=== PATIENT | male | born 1935 | race Asian ===

== ENCOUNTER 2016-12-16 10:57 | Inpatient (IN) | payer MEDICARE, MEDICAID ==
[2016-12-16] MEDS ORDERED: Sodium Chloride 0.9% 1,000 ML IV ONE (10:58)
--- NOTE | 2016-12-16 10:58 | ED Physician Chart ---
Chief Complaint/HPI - Patient Information Date Seen:: 12/16/16 Time Seen:: 10:57 Chief Complaint:: coffee-ground emesis History of Present Illness:: 81-year-old male [facility] with acute, worsening , coffee-ground emesis times one week. Has associated cough. History limited as patient has underlying dementia and is averbal History provided by EMS and EMS run sheet Allergies:: Allergies Allergy/AdvReac Type Severity Reaction Status Date / Time MDX No Known Allergies - Nka Allergy Verified 02/09/16 18:29 [No Known Allergies - Nka] Historian:: EMS Review:: Nurse's Note Reviewed, EMS run form Reviewed, Transfer documents Reviewed Review of Systems - Review of Systems Other: Complete system review otherwise unremarkable except as noted in HPI. Past Medical History - Past Medical History Past Medical History: HTN (anoxic encephalopathy), DM Family History: None Social History: Non Smoker, No Alcohol, No Drug Use, Care Facility Surgical History: PEG/GTube Psychiatricy History: None Medication: Reviewed Family Medical History - Family Member Mother History Unknown: Yes Physical Exam - Physical Examination Other:: INITIAL VITAL SIGNS: Reviewed by me GENERAL: Patient is lying on gurney HEAD: Head is normocephalic. No evidence of trauma. No scalp or facial swelling EYES: No scleral icterus bilaterally ENT: Oropharynx is clear of exudate and erythema NECK: Supple. No meningismus. No masses. No evidence of trauma. No cervical spine bony step-offs or crepitus to palpation RESPIRATORY: No tachypnea. T-bar in place. Coarse breath sounds worse on the right than left. CV: Regular rate and rhythm. No murmurs, rubs, or gallops ABDOMEN: Soft, non-distended. G-tube in place. No masses BACK: No ecchymoses. No evidence of trauma EXTREMITIES: Normal to inspection and palpation. No deformity SKIN: Warm and dry. No obvious rash. No jaundice NEUROLOGIC: Face is symmetric. Withdraws to pain in all extremities Labs/Radiology/EKG Results - Lab Results Results: Lab Results 12/16/16 12/16/16 12/16/16 Range/Units 11:40 11:40 11:40 WBC 8.4 (4.8-10.8) Th/cmm RBC 3.54 L (3.80-5.80) Mil/cmm Hgb 10.9 L (12.6-17.4) gm/dL Hct 33.3 L (39.0-49.0) % MCV 94.0 (80-99) fl MCH 30.9 (27.0-31.0) pg MCHC Differential 32.9 (28.0-36.0) pg RDW 12.8 (11.5-20.0) % Plt Count 236 (150-400) Th/cmm MPV 8.4 fl Neutrophils % 79.4 (40.0-80.0) % Lymphocytes % 9.1 L (20.0-50.0) % Monocytes % 7.3 (2.0-10.0) % Eosinophils % 3.1 (0.0-5.0) % Basophils % 1.1 (0.0-2.0) % PT 9.7 (9.5-11.5) SECONDS INR 0.98 (0.5-1.4) PTT (Actin FS) 25.6 L (26.0-38.0) SECONDS Sodium 129 L (136-145) mEq/L Potassium 4.1 (3.5-5.1) mEq/L Chloride 95 L (98-107) mEq/L Carbon Dioxide 29.8 (21.0-31.0) mEq/L Anion Gap 8.3 (7.0-16.0) BUN 65 H (7-25) mg/dL Creatinine 1.5 H (0.7-1.3) mg/dL Est GFR ( Amer) TNP Est GFR (Non-Af Amer) TNP BUN/Creatinine Ratio 43.3 Glucose 164 H (70-105) mg/dL POC Glucose (70 - 105) MG/DL Whole Bld Lactic Acid (0.60-2.00) mmol/L Calcium 10.4 H (8.6-10.3) mg/dL Total Bilirubin 0.3 (0.3-1.0) mg/dL AST 21 (13-39) U/L ALT 18 (7-52) U/L Alkaline Phosphatase 90 (34-104) U/L Creatine Kinase 122 (30-223) U/L Total Protein 8.0 (6.0-8.3) gm/dL Albumin 3.7 L (4.2-5.5) gm/dL Globulin 4.3 gm/dL Albumin/Globulin Ratio 0.9 L (1.0-1.8) Amylase 108 H (29-103) U/L Lipase 21 (11-82) U/L Urine Source Urine Color Urine Clarity (CLEAR) Urine pH Ur Specific [place] (1.005-1.030) Urine Protein (NEGATIVE) mg/dL Urine Glucose (UA) (NEGATIVE) mg/dL Urine Ketones (NEGATIVE) mg/dL Urine Blood (NEGATIVE) Urine Nitrate (NEGATIVE) Urine Bilirubin (NEGATIVE) Urine Urobilinogen (0.2 - 1.0) E.U./dL Ur Leukocyte Esterase (NEGATIVE) Urine RBC (0-5) /hpf Urine WBC (0-5) /hpf Ur Epithelial Cells (FEW) /lpf Urine Bacteria (NONE SEEN) /hpf Stool Occult Blood (NEGATIVE) Theophylline (10.0-20.0) ug/mL Blood Type Antibody Screen 12/16/16 12/16/16 12/16/16 Range/Units 11:40 11:40 11:40 WBC (4.8-10.8) Th/cmm RBC (3.80-5.80) Mil/cmm Hgb (12.6-17.4) gm/dL Hct (39.0-49.0) % MCV (80-99) fl MCH (27.0-31.0) pg MCHC Differential (28.0-36.0) pg RDW (11.5-20.0) % Plt Count (150-400) Th/cmm MPV fl Neutrophils % (40.0-80.0) % Lymphocytes % (20.0-50.0) % Monocytes % (2.0-10.0) % Eosinophils % (0.0-5.0) % Basophils % (0.0-2.0) % PT (9.5-11.5) SECONDS INR (0.5-1.4) PTT (Actin FS) (26.0-38.0) SECONDS Sodium (136-145) mEq/L Potassium (3.5-5.1) mEq/L Chloride (98-107) mEq/L Carbon Dioxide (21.0-31.0) mEq/L Anion Gap (7.0-16.0) BUN (7-25) mg/dL Creatinine (0.7-1.3) mg/dL Est GFR ( Amer) Est GFR (Non-Af Amer) BUN/Creatinine Ratio Glucose (70-105) mg/dL POC Glucose (70 - 105) MG/DL Whole Bld Lactic Acid 1.01 (0.60-2.00) mmol/L Calcium (8.6-10.3) mg/dL Total Bilirubin (0.3-1.0) mg/dL AST (13-39) U/L ALT (7-52) U/L Alkaline Phosphatase (34-104) U/L Creatine Kinase (30-223) U/L Total Protein (6.0-8.3) gm/dL Albumin (4.2-5.5) gm/dL Globulin gm/dL Albumin/Globulin Ratio (1.0-1.8) Amylase (29-103) U/L Lipase (11-82) U/L Urine Source Urine Color Urine Clarity (CLEAR) Urine pH Ur Specific [place] (1.005-1.030) Urine Protein (NEGATIVE) mg/dL Urine Glucose (UA) (NEGATIVE) mg/dL Urine Ketones (NEGATIVE) mg/dL Urine Blood (NEGATIVE) Urine Nitrate (NEGATIVE) Urine Bilirubin (NEGATIVE) Urine Urobilinogen (0.2 - 1.0) E.U./dL Ur Leukocyte Esterase (NEGATIVE) Urine RBC (0-5) /hpf Urine WBC (0-5) /hpf Ur Epithelial Cells (FEW) /lpf Urine Bacteria (NONE SEEN) /hpf Stool Occult Blood (NEGATIVE) Theophylline 4.6 L (10.0-20.0) ug/mL Blood Type O POSITIVE Antibody Screen NEGATIVE 12/16/16 12/16/16 12/16/16 Range/Units 12:25 17:15 17:48 WBC (4.8-10.8) Th/cmm RBC (3.80-5.80) Mil/cmm Hgb (12.6-17.4) gm/dL Hct (39.0-49.0) % MCV (80-99) fl MCH (27.0-31.0) pg MCHC Differential (28.0-36.0) pg RDW (11.5-20.0) % Plt Count (150-400) Th/cmm MPV fl Neutrophils % (40.0-80.0) % Lymphocytes % (20.0-50.0) % Monocytes % (2.0-10.0) % Eosinophils % (0.0-5.0) % Basophils % (0.0-2.0) % PT (9.5-11.5) SECONDS INR (0.5-1.4) PTT (Actin FS) (26.0-38.0) SECONDS Sodium (136-145) mEq/L Potassium (3.5-5.1) mEq/L Chloride (98-107) mEq/L Carbon Dioxide (21.0-31.0) mEq/L Anion Gap (7.0-16.0) BUN (7-25) mg/dL Creatinine (0.7-1.3) mg/dL Est GFR ( Amer) Est GFR (Non-Af Amer) BUN/Creatinine Ratio Glucose (70-105) mg/dL POC Glucose 156 H (70 - 105) MG/DL Whole Bld Lactic Acid (0.60-2.00) mmol/L Calcium (8.6-10.3) mg/dL Total Bilirubin (0.3-1.0) mg/dL AST (13-39) U/L ALT (7-52) U/L Alkaline Phosphatase (34-104) U/L Creatine Kinase (30-223) U/L Total Protein (6.0-8.3) gm/dL Albumin (4.2-5.5) gm/dL Globulin gm/dL Albumin/Globulin Ratio (1.0-1.8) Amylase (29-103) U/L Lipase (11-82) U/L Urine Source [place] Urine Color YELLOW Urine Clarity CLOUDY (CLEAR) Urine pH 6.5 Ur Specific [place] 1.020 (1.005-1.030) Urine Protein 100 H (NEGATIVE) mg/dL Urine Glucose (UA) NEGATIVE (NEGATIVE) mg/dL Urine Ketones NEGATIVE (NEGATIVE) mg/dL Urine Blood MODERATE H (NEGATIVE) Urine Nitrate NEGATIVE (NEGATIVE) Urine Bilirubin SMALL H (NEGATIVE) Urine Urobilinogen 0.2 (0.2 - 1.0) E.U./dL Ur Leukocyte Esterase LARGE H (NEGATIVE) Urine RBC 6-8 (0-5) /hpf Urine WBC 50-100 H (0-5) /hpf Ur Epithelial Cells OCCASIONAL (FEW) /lpf Urine Bacteria MANY (NONE SEEN) /hpf Stool Occult Blood NEGATIVE (NEGATIVE) Theophylline (10.0-20.0) ug/mL Blood Type Antibody Screen 12/16/16 Range/Units 21:09 WBC (4.8-10.8) Th/cmm RBC (3.80-5.80) Mil/cmm Hgb (12.6-17.4) gm/dL Hct (39.0-49.0) % MCV (80-99) fl MCH (27.0-31.0) pg MCHC Differential (28.0-36.0) pg RDW (11.5-20.0) % Plt Count (150-400) Th/cmm MPV fl Neutrophils % (40.0-80.0) % Lymphocytes % (20.0-50.0) % Monocytes % (2.0-10.0) % Eosinophils % (0.0-5.0) % Basophils % (0.0-2.0) % PT (9.5-11.5) SECONDS INR (0.5-1.4) PTT (Actin FS) (26.0-38.0) SECONDS Sodium (136-145) mEq/L Potassium (3.5-5.1) mEq/L Chloride (98-107) mEq/L Carbon Dioxide (21.0-31.0) mEq/L Anion Gap (7.0-16.0) BUN (7-25) mg/dL Creatinine (0.7-1.3) mg/dL Est GFR ( Amer) Est GFR (Non-Af Amer) BUN/Creatinine Ratio Glucose (70-105) mg/dL POC Glucose 150 H (70 - 105) MG/DL Whole Bld Lactic Acid (0.60-2.00) mmol/L Calcium (8.6-10.3) mg/dL Total Bilirubin (0.3-1.0) mg/dL AST (13-39) U/L ALT (7-52) U/L Alkaline Phosphatase (34-104) U/L Creatine Kinase (30-223) U/L Total Protein (6.0-8.3) gm/dL Albumin (4.2-5.5) gm/dL Globulin gm/dL Albumin/Globulin Ratio (1.0-1.8) Amylase (29-103) U/L Lipase (11-82) U/L Urine Source Urine Color Urine Clarity (CLEAR) Urine pH Ur Specific [place] (1.005-1.030) Urine Protein (NEGATIVE) mg/dL Urine Glucose (UA) (NEGATIVE) mg/dL Urine Ketones (NEGATIVE) mg/dL Urine Blood (NEGATIVE) Urine Nitrate (NEGATIVE) Urine Bilirubin (NEGATIVE) Urine Urobilinogen (0.2 - 1.0) E.U./dL Ur Leukocyte Esterase (NEGATIVE) Urine RBC (0-5) /hpf Urine WBC (0-5) /hpf Ur Epithelial Cells (FEW) /lpf Urine Bacteria (NONE SEEN) /hpf Stool Occult Blood (NEGATIVE) Theophylline (10.0-20.0) ug/mL Blood Type Antibody Screen - Radiology Results Results: - EKG Interpretations Comments:: 12-lead EKG Interpretation by Stacy Negron MD: Sinus tachycardia with ventricular rate of 102 beats per minute Normal axis Normal intervals No acute ST or T wave changes. No obvious STEMI Assessment - Assessment General Assessment: Critical Care Time: 30 minutes Treatments/Evaluations: Close monitoring and treatment of unstable vital signs, cardiorespiratory, and neurologic status, while maintaining tight balance of fluid, respiratory, and cardiac interventions. This time includes discussing the case with the patient and the patient's family. This time does not include all procedures stated elsewhere in this record. This time also includes reviewing old records, labs and radiological studies. This time includes examining and re-examining the patient. Additionally, this time also includes arranging care with admitting and consulting physicians. Excludes all billable procedures: Yes This condition life threatening/high prob of deterioration: Yes ED Septic Shock - . Is Septic Shock (SBP<90, OR Lactate>4 mmol\L) present?: No Reassessment (Disposition) - Reassessment Reassessment:: Patient has upper GI bleed. There was critical care on this patient 30 minutes. This excludes all billable procedures. Patient received IV fluids and close monitoring. He also received IV Protonix and IV antibiotics as prophylaxis there was concern that he may have aspirated. Discussed the case with the admitting physician and expressed good understanding of the case. He will admit the patient for further workup and treatment. Reassessment Condition:: Improved - Diagnosis Diagnosis:: Upper GI bleed Anemia Acute UTI with hematuria Hyponatremia Acute kidney injury - Patient Disposition Discharge/Transfer:: Acute Care w/in this hosp Admitted to:: Med/Surg Time:: 12:45 Condition at Disposition:: Stable ED Discharge Plan - Patient Disposition Admit/Discharge/Transfer: Acute Care w/in this hosp Condition at Disposition: Stable
[2016-12-16] MEDS ORDERED: Pantoprazole 80 MG in Sodium Chloride 0.9% 100 ML IV ONE (11:05)
[2016-12-16] MEDS ORDERED: Piperacillin Sodium/Tazobact 3.375 gm Vial IV ONE (11:24)
[2016-12-16 11:58] VITALS: BP 171/85
[2016-12-16 12:00] LABS: % BASOPHILS 1.1 % (0.0-2.0); % EOSINOPHILS 3.1 % (0.0-5.0); % LYMPHOCYTES 9.1 % (20.0-50.0); % MONOCYTES 7.3 % (2.0-10.0); % NEUTROPHILS 79.4 % (40.0-80.0); HEMATOCRIT 33.3 % (39.0-49.0); HEMOGLOBIN 10.9 gm/dL (12.6-17.4); MEAN CORPUSCULAR HEMOGLOBIN 30.9 pg (27.0-31.0); MEAN CORPUSCULAR HGB CONC 32.9 pg (28.0-36.0); MEAN PLATELET VOLUME 8.4 fl; NEUTROPHILE ABSOLUTE 6.6 Th/cmm (1.8-8.0); PLATELET COUNT 236 Th/cmm (150-400); RED BLOOD COUNT 3.54 Mil/cmm (3.80-5.80); RED CELL DISTRIBUTION WIDTH 12.8 % (11.5-20.0); WHITE BLOOD COUNT 8.4 Th/cmm (4.8-10.8)
[2016-12-16 12:31] LABS: ALB/GLOB RATIO 0.9 (1.0-1.8); ALKALINE PHOSPHATASE 90 U/L (34-104); AMYLASE SERUM 108 U/L (29-103); ANION GAP 8.3 (7.0-16.0); BILIRUBIN,TOTAL 0.3 mg/dL (0.3-1.0); BUN - UREA NITROGEN 65 mg/dL (7-25); BUN/CREATININE RATIO 43.3; CALCIUM SERUM 10.4 mg/dL (8.6-10.3); CARBON DIOXIDE 29.8 mEq/L (21.0-31.0); CHLORIDE 95 mEq/L (98-107); CREATININE - SERUM 1.5 mg/dL (0.7-1.3); GLUCOSE 164 mg/dL (70-105); LIPASE 21 U/L (11-82); POTASSIUM SERUM 4.1 mEq/L (3.5-5.1); SGOT 21 U/L (13-39); SGPT/ALT 18 U/L (7-52); SODIUM SERUM 129 mEq/L (136-145)
[2016-12-16 12:37] LABS: INR 0.98 (0.5-1.4); PROTHROMBIN TIME (TEST) 9.7 SECONDS (9.5-11.5)
[2016-12-16 12:46] LABS: URINE BILIRUBIN SMALL (NEGATIVE); URINE BLOOD MODERATE (NEGATIVE); URINE COLOR YELLOW; URINE GLUCOSE (UA) NEGATIVE (NEGATIVE); URINE KETONE NEGATIVE (NEGATIVE); URINE PH 6.5; URINE PROTEIN 100 mg/dL (NEGATIVE); URINE UROBILINOGEN 0.2 E.U./dL (0.2 - 1.0)
[2016-12-16 12:49] LABS: URINE BACTERIA MANY /hpf (NONE SEEN); URINE EPITHELIAL CELLS OCCASIONAL /lpf (FEW); URINE WBC 50-100 /hpf (0-5)
[2016-12-16] MEDS ORDERED: Fleet Enema 135 mL RC PRN (14:57)
[2016-12-16] MEDS ORDERED: Magnesium Hydroxide (MOM) 30 mL UDC GT PRN (14:57)
[2016-12-16] MEDS ORDERED: Polyvinyl Alcohol Ophth Soln 15 mL Bottle EACH EYE PRN (14:57)
[2016-12-16] MEDS ORDERED: Epoetin Alfa 20000 Units/mL Vial SUBQ SCH (15:00)
[2016-12-16] MEDS ORDERED: Metoclopramide 5 mg/mL 2mL Vial IVP PRN (15:02)
[2016-12-16] MEDS ORDERED: Metoclopramide 5 mg/mL 2mL Vial IVP ONE (15:06)
[2016-12-16] MEDS ORDERED: D5-0.9%NS 1,000 ML IV SCH (15:15)
--- NOTE | 2016-12-16 15:16 | Internal Medicine Prog Note ---
Internal Medicine Subjective - Subjective Service Date: 12/16/16 Internal Medicine Objective - Results Result Diagrams: 12/16/16 11:40 12/16/16 11:40 Recent Labs: Laboratory Last Values WBC 8.4 Th/cmm (4.8-10.8) 12/16/16 11:40 RBC 3.54 Mil/cmm (3.80-5.80) L 12/16/16 11:40 Hgb 10.9 gm/dL (12.6-17.4) L 12/16/16 11:40 Hct 33.3 % (39.0-49.0) L 12/16/16 11:40 MCV 94.0 fl (80-99) 12/16/16 11:40 MCH 30.9 pg (27.0-31.0) 12/16/16 11:40 MCHC Differential 32.9 pg (28.0-36.0) 12/16/16 11:40 RDW 12.8 % (11.5-20.0) 12/16/16 11:40 Plt Count 236 Th/cmm (150-400) 12/16/16 11:40 MPV 8.4 fl 12/16/16 11:40 Neutrophils % 79.4 % (40.0-80.0) 12/16/16 11:40 Lymphocytes % 9.1 % (20.0-50.0) L 12/16/16 11:40 Monocytes % 7.3 % (2.0-10.0) 12/16/16 11:40 Eosinophils % 3.1 % (0.0-5.0) 12/16/16 11:40 Basophils % 1.1 % (0.0-2.0) 12/16/16 11:40 PT 9.7 SECONDS (9.5-11.5) 12/16/16 11:40 INR 0.98 (0.5-1.4) 12/16/16 11:40 PTT (Actin FS) 25.6 SECONDS (26.0-38.0) L 12/16/16 11:40 Sodium 129 mEq/L (136-145) L 12/16/16 11:40 Potassium 4.1 mEq/L (3.5-5.1) 12/16/16 11:40 Chloride 95 mEq/L (98-107) L 12/16/16 11:40 Carbon Dioxide 29.8 mEq/L (21.0-31.0) 12/16/16 11:40 Anion Gap 8.3 (7.0-16.0) 12/16/16 11:40 BUN 65 mg/dL (7-25) H 12/16/16 11:40 Creatinine 1.5 mg/dL (0.7-1.3) H 12/16/16 11:40 Est GFR ( Amer) TNP 12/16/16 11:40 Est GFR (Non-Af Amer) TN 12/16/16 11:40 BUN/Creatinine Ratio 43.3 12/16/16 11:40 Glucose 164 mg/dL (70-105) H 12/16/16 11:40 Whole Bld Lactic Acid 1.01 mmol/L (0.60-2.00) 12/16/16 11:40 Calcium 10.4 mg/dL (8.6-10.3) H 12/16/16 11:40 Total Bilirubin 0.3 mg/dL (0.3-1.0) 12/16/16 11:40 AST 21 U/L (13-39) 12/16/16 11:40 ALT 18 U/L (7-52) 12/16/16 11:40 Alkaline Phosphatase 90 U/L (34-104) 12/16/16 11:40 Creatine Kinase 122 U/L (30-223) 12/16/16 11:40 Total Protein 8.0 gm/dL (6.0-8.3) 12/16/16 11:40 Albumin 3.7 gm/dL (4.2-5.5) L 12/16/16 11:40 Globulin 4.3 gm/dL 12/16/16 11:40 Albumin/Globulin Ratio 0.9 (1.0-1.8) L 12/16/16 11:40 Amylase 108 U/L (29-103) H 12/16/16 11:40 Lipase 21 U/L (11-82) 12/16/16 11:40 Urine Source [place] 12/16/16 12:25 Urine Color YELLOW 12/16/16 12:25 Urine Clarity CLOUDY (CLEAR) 12/16/16 12:25 Urine pH 6.5 12/16/16 12:25 Ur Specific [place] 1.020 (1.005-1.030) 12/16/16 12:25 Urine Protein 100 mg/dL (NEGATIVE) H 12/16/16 12:25 Urine Glucose (UA) NEGATIVE mg/dL (NEGATIVE) 12/16/16 12:25 Urine Ketones NEGATIVE mg/dL (NEGATIVE) 12/16/16 12:25 Urine Blood MODERATE (NEGATIVE) H 12/16/16 12:25 Urine Nitrate NEGATIVE (NEGATIVE) 12/16/16 12:25 Urine Bilirubin SMALL (NEGATIVE) H 12/16/16 12:25 Urine Urobilinogen 0.2 E.U./dL (0.2 - 1.0) 12/16/16 12:25 Ur Leukocyte Esterase LARGE (NEGATIVE) H 12/16/16 12:25 Urine RBC 6-8 /hpf (0-5) 12/16/16 12:25 Urine WBC 50-100 /hpf (0-5) H 12/16/16 12:25 Ur Epithelial Cells OCCASIONAL /lpf (FEW) 12/16/16 12:25 Urine Bacteria MANY /hpf (NONE SEEN) 12/16/16 12:25 Theophylline 4.6 ug/mL (10.0-20.0) L 12/16/16 11:40 Blood Type O POSITIVE 12/16/16 11:40 Antibody Screen NEGATIVE 12/16/16 11:40 - Physical Exam Vitals and I&O: Vital Signs Temp 97.6 F 12/16/16 13:36 Pulse 110 12/16/16 13:36 Resp 29 12/16/16 13:36 BP 147/55 12/16/16 13:36 Pulse Ox 100 12/16/16 14:00 Active Medications: Current Medications Acetylcysteine (Mucomyst 10%) 2 ml HHN Q4HR DANNI Stop: 02/14/17 15:59 Albuterol/Ipratropium (Duoneb Neb) 3 ml HHN Q6H DANNI Stop: 02/14/17 14:59 Bisacodyl (Dulcolax 10 Mg Supp) 10 mg RC DAILY PRN PRN Reason: if MOM ineffective Stop: 02/14/17 14:56 Budesonide (Pulmicort) 0.5 mg HHN Q12H DANNI Stop: 02/14/17 14:59 Chlorhexidine Gluconate (Peridex) 15 ml MM BID DANNI Stop: 02/14/17 16:59 Chlorpromazine (Thorazine) 25 mg IM Q8H PRN; Protocol PRN Reason: Hiccups Stop: 02/14/17 14:56 Clonidine HCl (Catapres) 0.1 mg PO Q6H PRN PRN Reason: SBP>160 Stop: 02/14/17 15:14 Epoetin Dennis (Epogen) 10,000 units SUBQ QWEEK 0730 DANNI Stop: 02/16/17 05:59 Dextrose/Sodium Chloride (D5-0.9%Ns) 1,000 mls @ 100 mls/hr IV .Q10H DANNI Stop: 02/14/17 15:14 Piperacillin Sod/Tazobactam (Sod 3.375 gm/ Sodium Chloride) 50 mls @ 100 mls/ hr IV Q8H DANNI Stop: 02/14/17 15:14 Levothyroxine Sodium (Synthroid) 0.05 mg GT DAILY [facility] Stop: 02/15/17 08:59 Magnesium Hydroxide (Milk Of Magnesia) 30 ml GT HS PRN PRN Reason: Constipation Stop: 02/14/17 14:56 Metoclopramide HCl (Reglan) 10 mg IVP Q8HR DANNI Stop: 02/14/17 20:59 Miscellaneous (Cran/Vitc/Mannose/Fos/Bromeln [Uti-Stat Liquid]) 30 ml GT BID [facility] Stop: 02/14/17 16:59 Miscellaneous (Docusate Sodium) 100 mg GT BID [facility] Stop: 02/14/17 16:59 Miscellaneous (Insulin Human Isophane (Nph) [Humulin N]) 10 unit SUBQ Q12H DANNI Stop: 02/14/17 14:59 Miscellaneous (Lactobacillus Acidophilus/Pe [Acidophilus/Apple Pectin Complex]) 1 cap GT Q12H DANNI Stop: 02/14/17 14:59 Miscellaneous (Multivitamin [Multivitamins]) 1 sgl GT DAILY [facility] Stop: 02/15/17 08:59 Miscellaneous (Polyvinyl Alcohol [Artificial Tears 15 Ml]) 1 drop EACH EYE Q6H PRN PRN Reason: dry eyes Miscellaneous (Theophylline) 200 mg PO BID [facility] Stop: 02/14/17 16:59 Miscellaneous (Acetaminophen [Tylenol]) 650 mg GT Q4H PRN PRN Reason: Fever >101 Stop: 02/14/17 15:12 Scopolamine (Transderm Scop Patch) 1 patch TD Q72H DANNI Stop: 02/14/17 14:59 Sodium Phosphate (Fleet Enema) ml RC Q2D PRN PRN Reason: dulcolax ineffective Stop: 02/14/17 14:56 Sucralfate (Carafate) 1 gm GT QID DANNI Stop: 02/14/17 16:59 - Procedures Procedures: Procedures Procedure Code Date BLOOD TRANSFUSION SERVICE 58191 02/09/16 EGD DIAGNOSTIC BRUSH WASH 08165 02/09/16 INSPECTION OF UPPER INTESTINAL TRACT, ENDO [id number] 02/09/16 TRANSFUSE NONAUT RED BLOOD CELLS IN PERIPH VEIN, PERC 51180I8 02/09/16 Internal Medicine Assmt/Plan - Assessment Assessment: upper GI bleed acute uti acute respiratory failure dehydration htn dm-2
--- NOTE | 2016-12-16 15:24 | Internal Medicine Prog Note ---
Internal Medicine Subjective - Subjective Service Date: 12/16/16 ([facility] dictated [id number]) Internal Medicine Objective - Results Result Diagrams: 12/16/16 11:40 12/16/16 11:40 Recent Labs: Laboratory Last Values WBC 8.4 Th/cmm (4.8-10.8) 12/16/16 11:40 RBC 3.54 Mil/cmm (3.80-5.80) L 12/16/16 11:40 Hgb 10.9 gm/dL (12.6-17.4) L 12/16/16 11:40 Hct 33.3 % (39.0-49.0) L 12/16/16 11:40 MCV 94.0 fl (80-99) 12/16/16 11:40 MCH 30.9 pg (27.0-31.0) 12/16/16 11:40 MCHC Differential 32.9 pg (28.0-36.0) 12/16/16 11:40 RDW 12.8 % (11.5-20.0) 12/16/16 11:40 Plt Count 236 Th/cmm (150-400) 12/16/16 11:40 MPV 8.4 fl 12/16/16 11:40 Neutrophils % 79.4 % (40.0-80.0) 12/16/16 11:40 Lymphocytes % 9.1 % (20.0-50.0) L 12/16/16 11:40 Monocytes % 7.3 % (2.0-10.0) 12/16/16 11:40 Eosinophils % 3.1 % (0.0-5.0) 12/16/16 11:40 Basophils % 1.1 % (0.0-2.0) 12/16/16 11:40 PT 9.7 SECONDS (9.5-11.5) 12/16/16 11:40 INR 0.98 (0.5-1.4) 12/16/16 11:40 PTT (Actin FS) 25.6 SECONDS (26.0-38.0) L 12/16/16 11:40 Sodium 129 mEq/L (136-145) L 12/16/16 11:40 Potassium 4.1 mEq/L (3.5-5.1) 12/16/16 11:40 Chloride 95 mEq/L (98-107) L 12/16/16 11:40 Carbon Dioxide 29.8 mEq/L (21.0-31.0) 12/16/16 11:40 Anion Gap 8.3 (7.0-16.0) 12/16/16 11:40 BUN 65 mg/dL (7-25) H 12/16/16 11:40 Creatinine 1.5 mg/dL (0.7-1.3) H 12/16/16 11:40 Est GFR ( Amer) TNP 12/16/16 11:40 Est GFR (Non-Af Amer) TNP 12/16/16 11:40 BUN/Creatinine Ratio 43.3 12/16/16 11:40 Glucose 164 mg/dL (70-105) H 12/16/16 11:40 Whole Bld Lactic Acid 1.01 mmol/L (0.60-2.00) 12/16/16 11:40 Calcium 10.4 mg/dL (8.6-10.3) H 12/16/16 11:40 Total Bilirubin 0.3 mg/dL (0.3-1.0) 12/16/16 11:40 AST 21 U/L (13-39) 12/16/16 11:40 ALT 18 U/L (7-52) 12/16/16 11:40 Alkaline Phosphatase 90 U/L (34-104) 12/16/16 11:40 Creatine Kinase 122 U/L (30-223) 12/16/16 11:40 Total Protein 8.0 gm/dL (6.0-8.3) 12/16/16 11:40 Albumin 3.7 gm/dL (4.2-5.5) L 12/16/16 11:40 Globulin 4.3 gm/dL 12/16/16 11:40 Albumin/Globulin Ratio 0.9 (1.0-1.8) L 12/16/16 11:40 Amylase 108 U/L (29-103) H 12/16/16 11:40 Lipase 21 U/L (11-82) 12/16/16 11:40 Urine Source [place] 12/16/16 12:25 Urine Color YELLOW 12/16/16 12:25 Urine Clarity CLOUDY (CLEAR) 12/16/16 12:25 Urine pH 6.5 12/16/16 12:25 Ur Specific [place] 1.020 (1.005-1.030) 12/16/16 12:25 Urine Protein 100 mg/dL (NEGATIVE) H 12/16/16 12:25 Urine Glucose (UA) NEGATIVE mg/dL (NEGATIVE) 12/16/16 12:25 Urine Ketones NEGATIVE mg/dL (NEGATIVE) 12/16/16 12:25 Urine Blood MODERATE (NEGATIVE) H 12/16/16 12:25 Urine Nitrate NEGATIVE (NEGATIVE) 12/16/16 12:25 Urine Bilirubin SMALL (NEGATIVE) H 12/16/16 12:25 Urine Urobilinogen 0.2 E.U./dL (0.2 - 1.0) 12/16/16 12:25 Ur Leukocyte Esterase LARGE (NEGATIVE) H 12/16/16 12:25 Urine RBC 6-8 /hpf (0-5) 12/16/16 12:25 Urine WBC 50-100 /hpf (0-5) H 12/16/16 12:25 Ur Epithelial Cells OCCASIONAL /lpf (FEW) 12/16/16 12:25 Urine Bacteria MANY /hpf (NONE SEEN) 12/16/16 12:25 Theophylline 4.6 ug/mL (10.0-20.0) L 12/16/16 11:40 Blood Type O POSITIVE 12/16/16 11:40 Antibody Screen NEGATIVE 12/16/16 11:40 - Physical Exam Vitals and I&O: Vital Signs Temp 97.6 F 12/16/16 13:36 Pulse 110 12/16/16 13:36 Resp 29 12/16/16 13:36 BP 147/55 12/16/16 13:36 Pulse Ox 100 12/16/16 14:00 Active Medications: Current Medications Acetylcysteine (Mucomyst 10%) 2 ml HHN Q4HR [facility] Stop: 02/14/17 15:59 Albuterol/Ipratropium (Duoneb Neb) 3 ml HHN Q6H [facility]AN[facility] Stop: 02/14/17 14:59 Bisacodyl (Dulcolax 10 Mg Supp) 10 mg RC DAILY PRN PRN Reason: if MOM ineffective Stop: 02/14/17 14:56 Budesonide (Pulmicort) 0.5 mg HHN Q12H [facility] Stop: 02/14/17 14:59 Chlorhexidine Gluconate (Peridex) 15 ml MM BID [facility] Stop: 02/14/17 16:59 Chlorpromazine (Thorazine) 25 mg IM Q8H PRN; Protocol PRN Reason: Hiccups Stop: 02/14/17 14:56 Clonidine HCl (Catapres) 0.1 mg PO Q6H PRN PRN Reason: SBP>160 Stop: 02/14/17 15:14 Epoetin Dennis (Epogen) 10,000 units SUBQ QWEEK 0730 [facility] Stop: 02/16/17 05:59 Dextrose/Sodium Chloride (D5-0.9%Ns) 1,000 mls @ 100 mls/hr IV .Q10H [facility] Stop: 02/14/17 15:14 Piperacillin Sod/Tazobactam (Sod 3.375 gm/ Sodium Chloride) 50 mls @ 100 mls/ hr IV Q8H [facility] Stop: 02/14/17 15:14 Levothyroxine Sodium (Synthroid) 0.05 mg GT DAILY [facility] Stop: 02/15/17 08:59 Magnesium Hydroxide (Milk Of Magnesia) 30 ml GT HS PRN PRN Reason: Constipation Stop: 02/14/17 14:56 Metoclopramide HCl (Reglan) 10 mg IVP Q8HR [facility] Stop: 02/14/17 20:59 Miscellaneous (Cran/Vitc/Mannose/Fos/Bromeln [Uti-Stat Liquid]) 30 ml GT BID [facility] Stop: 02/14/17 16:59 Miscellaneous (Docusate Sodium) 100 mg GT BID [facility] Stop: 02/14/17 16:59 Miscellaneous (Insulin Human Isophane (Nph) [Humulin N]) 10 unit SUBQ Q12H [facility] Stop: 02/14/17 14:59 Miscellaneous (Lactobacillus Acidophilus/Pe [Acidophilus/Apple Pectin Complex]) 1 cap GT Q12H [facility] Stop: 02/14/17 14:59 Miscellaneous (Multivitamin [Multivitamins]) 1 sgl GT DAILY [facility] Stop: 02/15/17 08:59 Miscellaneous (Polyvinyl Alcohol [Artificial Tears 15 Ml]) 1 drop EACH EYE Q6H PRN PRN Reason: dry eyes Miscellaneous (Theophylline) 200 mg PO BID [facility] Stop: 02/14/17 16:59 Miscellaneous (Acetaminophen [Tylenol]) 650 mg GT Q4H PRN PRN Reason: Fever >101 Stop: 02/14/17 15:12 Scopolamine (Transderm Scop Patch) 1 patch TD Q72H [facility] Stop: 02/14/17 14:59 Sodium Phosphate (Fleet Enema) ml RC Q2D PRN PRN Reason: dulcolax ineffective Stop: 02/14/17 14:56 Sucralfate (Carafate) 1 gm GT QID [facility] Stop: 02/14/17 16:59 - Procedures Procedures: Procedures Procedure Code Date BLOOD TRANSFUSION SERVICE 61192 02/09/16 EGD DIAGNOSTIC BRUSH WASH 22480 02/09/16 INSPECTION OF UPPER INTESTINAL TRACT, ENDO [id number] 02/09/16 TRANSFUSE NONAUT RED BLOOD CELLS IN PERIPH VEIN, PERC [id number] 02/09/16 Internal Medicine Assmt/Plan - Assessment Assessment: upper GI bleed acute uti acute respiratory failure dehydration htn dm-2
[2016-12-16] MEDS ORDERED: Albuterol/Ipratropium Neb 3 ML AERS HHN ONE (15:49)
[2016-12-16] MEDS: Albuterol/Ipratropium Neb 3 ML AERS HHN SCH ×2 (15:51→19:14)
--- NOTE | 2016-12-16 16:59 | History & Physical ---
CHIEF COMPLAINT: Coffee ground emesis. HISTORY OF PRESENT ILLNESS: This is an 81-year-old [place] male who is a resident of [facility] who was brought here to [facility] for coffee-ground emesis x 1 week. The patient was also noted to have productive thick greenish secretions upon examination. No fevers at the nursing facility. PAST MEDICAL HISTORY: Diabetes, hypertension, CAD, status post bypass graft, anoxic encephalopathy, DJD. MEDICATIONS: Please see medication reconciliation sheet. ALLERGIES: No drug allergies. SOCIAL HISTORY: The patient resides at [facility], requiring 24-hour nursing and RT care. FAMILY HISTORY: Noncontributory. REVIEW OF SYSTEMS: Unable to obtain, patient is nonverbal. PHYSICAL EXAMINATION: GENERAL: This is an elderly female who appears chronically ill. VITAL SIGNS: Temperature 97.6, heart rate 110, blood pressure 147/55, respirations 18, O2 sat 100%. HEENT: Head; normocephalic, atraumatic. NECK: Supple. No mass. LUNGS: Few rhonchi bilaterally upon auscultation. CARDIOVASCULAR: Regular rate and rhythm. No murmurs or gallops. ABDOMEN: Soft, nontender, nondistended. Positive bowel sounds in all 4 quadrants. LABORATORY DATA: WBC 8.4, H and H 10.9 and 33.3. Sodium 129, potassium 4.1, chloride 95, BUN of 65, creatinine 1.5, calcium 10.4, amylase of 108. The patient had a urinalysis done. The patient is positive for UTI. ASSESSMENT: 1. Upper gastrointestinal bleed. 2. Acute urinary tract infection. 3. Acute respiratory failure. 4. Dehydration. 5. Hypertension. 6. Type 2 diabetes. 7. Hyponatremia. PLAN: The patient to be admitted to the ICU Unit. The patient to have a consultation with Dr. Ken and Dr. Norton, Dr. Cruz and also wound resident care technician. The patient to be kept n.p.o. The patient will be kept hydrated on IV fluids of D5 NS at 100. The patient to have a chest x-ray done. Occult blood will be collected. CRP will be checked. The patient will be on empiric IV antibiotics of Zosyn. We will continue to monitor the patient. JOB# [id number]
[2016-12-16] MEDS ORDERED: chlorproMAZINE 25 mg/mL 2mL Amp IM PRN (17:00)
[2016-12-16] MEDS ORDERED: Chlorhexidine Gluconate 0.12% 480mL Bottle MM SCH ×2 (17:00)
[2016-12-16] MEDS ORDERED: Non-Formulary Item 1 EA (Cran/Vitc/Mannose/Fos/Bromeln [Uti-Stat Liquid] 30 ML) GT SCH (17:00)
[2016-12-16] MEDS ORDERED: Scopolamine 1.5 mg/ 72 hr TDM TD SCH (18:00)
[2016-12-16] MEDS: INSULIN ASPART SLIDING SCALE 100 UNITS/ML UNIT SUBQ SCH ×2 (18:10→21:31)
[2016-12-16] MEDS: Pantoprazole 80 MG in Sodium Chloride 0.9% 100 ML IV SCH (18:50)
[2016-12-16] MEDS: Budesonide 0.5 Mg/2 mL Ud HHN SCH (19:15)
--- NOTE | 2016-12-16 21:16 | Admit Criteria Form ---
Admit Criteria Forms - Admit Criteria Diagnosis: GASTROINTESTINAL BLEEDING, UPPER Clinical Indications for Admission to Inpatient Care ( Place 'X' for any and all applicable criteria): Admission is indicated for ANY ONE of the following(1)(2)(3)(4)(5)(6): [ X]I. Active bleeding (eg, fresh voluminous blood in emesis or nasogastric aspirate) [ ]II. Associated conditions requiring hospitalization (eg, perforation, obstruction from ulcer) [ X]III. Inpatient admission required rather than observation care (Also use Gastrointestinal Bleeding, Upper: Observation Care as appropriate) because of ANY ONE of the following: [ ]a) Hemodynamic instability that is severe or persistent [ ]b) Anemia requiring inpatient admission as indicated by ALL of the following: [ ]1) Presence of significant clinical finding indicated by ANY ONE of the following: [ ]A. Tachycardia for age [ ]B. Orthostatic vital sign changes [ ]C. Cognitive impairment [ ]D. Heart failure [ ]E. Chest pain [ ]F. Exertional dyspnea [ ]G. Other findings suggesting inadequate perfusion (eg, peripheral or myocardial ischemia, end organ dysfunction) [ ]2) Initial (eg, emergency department, observation care) treatment with transfusion or volume replacement is judged inappropriate (due to severity of the finding) or has been ineffective [ ]c) Severe pain requiring acute inpatient management [ ]d) High-risk low platelet count [ ]e) IV fluid to replace significant ongoing losses (greater than 3 L/m2 per day) [ ]f) Immediate inpatient surgery [ X]g) Other condition, treatment or monitoring requiring inpatient admission [ ]IV. Severe liver disease (eg, cirrhosis) [ ]V. Significant active comorbid disease [ ]. Anticoagulation therapy [ ]VII. High-risk endoscopic features (arterial bleeding, adherent clot, nonbleeding visible vessel, varices, flat red spots, ulcer size greater than 2 cm, or portal hypertensive gastropathy) [ ]VIII. Previous aortic graft placement or known aortic aneurysm [ ]IX. Coagulopathy [ ]X. Syncope Extended stay beyond goal length of stay may be needed for(1)(2): [ ]a) Emergency surgery [ ]b) Varices [ ]c) Coagulation abnormalities [ ]d) Recurrent, obscure, or persistent bleeding or continued Hemodynamic instability [ ]e) Associated conditions requiring surgery (eg, perforated gastric ulcer, gastric outlet obstruction) [ ]f) Active comorbidities (eg, renal insufficiency, heart failure, pre- existing liver disease) The original [facility] [employer] content created by [facility] [employer] has been revised. The portions of the content which have been revised are identified through the use of italic text or in bold, and [facility] has neither reviewed nor approved the modified material. All other unmodified content is copyright [facility] [employer]. Please see references footnoted in the original [facility] [employer] edition 2016 Admit Criteria Met?: Yes
[2016-12-16] MEDS: Chlorhexidine Gluconate 0.12% 480mL Bottle MM SCH (21:30)
[2016-12-16] MEDS: INSULIN HUMAN ISOPHANE (NPH) 100 UNITS/ML SUBQ SCH (21:33)
[2016-12-16] MEDS: Lactobacillus Rhamnosus 10 Billion CFU Capsule GT SCH (21:34)
[2016-12-16] MEDS: Theophylline 80 mg/15 mL UDC GT SCH (21:35)
[2016-12-16] MEDS: Metoclopramide 5 mg/mL 2mL Vial IVP SCH (21:35)
[2016-12-17] MEDS: Albuterol/Ipratropium Neb 3 ML AERS HHN SCH ×4 (01:05→19:34)
[2016-12-17] MEDS: D5-0.9%NS 1,000 ML IV SCH ×2 (01:54→13:35)
[2016-12-17] MEDS: Pantoprazole 80 MG in Sodium Chloride 0.9% 100 ML IV SCH ×4 (01:59→22:58)
[2016-12-17 05:19] LABS: % BASOPHILS 0.7 % (0.0-2.0); % EOSINOPHILS 4.2 % (0.0-5.0); % LYMPHOCYTES 13.2 % (20.0-50.0); % MONOCYTES 8.1 % (2.0-10.0); % NEUTROPHILS 73.8 % (40.0-80.0); HEMATOCRIT 30.3 % (39.0-49.0); HEMOGLOBIN 10.1 gm/dL (12.6-17.4); MEAN CELL VOLUME 93.2 fl (80-99); MEAN CORPUSCULAR HEMOGLOBIN 31.2 pg (27.0-31.0); MEAN CORPUSCULAR HGB CONC 33.4 pg (28.0-36.0); NEUTROPHILE ABSOLUTE 6.7 Th/cmm (1.8-8.0); PLATELET COUNT 201 Th/cmm (150-400); RED BLOOD COUNT 3.24 Mil/cmm (3.80-5.80); RED CELL DISTRIBUTION WIDTH 12.9 % (11.5-20.0); WHITE BLOOD COUNT 9.1 Th/cmm (4.8-10.8)
[2016-12-17 05:30] LABS: ALB/GLOB RATIO 0.8 (1.0-1.8); ALKALINE PHOSPHATASE 63 U/L (34-104); ANION GAP 9.2 (7.0-16.0); BILIRUBIN,TOTAL 0.5 mg/dL (0.3-1.0); BUN - UREA NITROGEN 53 mg/dL (7-25); BUN/CREATININE RATIO 37.9; CALCIUM SERUM 9.7 mg/dL (8.6-10.3); CARBON DIOXIDE 30.8 mEq/L (21.0-31.0); CHLORIDE 101 mEq/L (98-107); CREATININE - SERUM 1.4 mg/dL (0.7-1.3); GLUCOSE 131 mg/dL (70-105); SGOT 19 U/L (13-39); SGPT/ALT 16 U/L (7-52); SODIUM SERUM 137 mEq/L (136-145)
[2016-12-17] MEDS: Metoclopramide 5 mg/mL 2mL Vial IVP SCH ×3 (05:44→20:50)
[2016-12-17] MEDS: INSULIN ASPART SLIDING SCALE 100 UNITS/ML UNIT SUBQ SCH ×4 (06:52→20:48)
[2016-12-17] MEDS: Budesonide 0.5 Mg/2 mL Ud HHN SCH ×2 (06:58→19:35)
[2016-12-17] MEDS: Lactobacillus Rhamnosus 10 Billion CFU Capsule GT SCH ×2 (08:03→20:49)
[2016-12-17] MEDS: INSULIN HUMAN ISOPHANE (NPH) 100 UNITS/ML SUBQ SCH ×2 (08:03→20:48)
[2016-12-17] MEDS: Levothyroxine 0.05 Mg Tab GT SCH (08:03)
[2016-12-17] MEDS: Multivitamin Tab GT SCH (08:03)
[2016-12-17] MEDS: Theophylline 80 mg/15 mL UDC GT SCH ×2 (08:04→20:49)
[2016-12-17] MEDS: Chlorhexidine Gluconate 0.12% 480mL Bottle MM SCH ×2 (08:20→21:49)
[2016-12-17] MEDS ORDERED: Non-Formulary Item 1 EA (Acetaminophen [Tylenol] 650 MG) GT SCH (09:00)
--- NOTE | 2016-12-17 09:32 | Diagnostic Imaging Report ---
History: Chest pain and dyspnea Comparison: 02/14/2016 Findings: Heart size is enlarged. Aorta is tortuous. Tracheostomy tube is present. There are no infiltrates or effusions. Impression: Compared old study no acute cardiopulmonary pathology.
--- NOTE | 2016-12-17 10:49 | Diagnostic Imaging Report ---
History: Chest pain and shortness of breath Comparison: 12/16/2016 Findings: Heart size is enlarged. Slight prominence of bronchovascular markings in the bases. Impression: Compared to previous exam slight increase in bronchovascular markings in the lung bases which may be due to poor inspiratory effort or mild congestive changes.
--- NOTE | 2016-12-17 11:16 | Diagnostic Imaging Report ---
History: Abdominal distention Findings: Gastrostomy tube is present with its tip overlying the left upper quadrant. There is mild gaseous distention of small and large bowel loops. Impression mild ileus gas pattern.
--- NOTE | 2016-12-17 14:34 | Consultation ---
REFERRING PHYSICIAN: Dr. Andrade. Thank you very much Dr. Andrade for this consultation. HISTORY OF PRESENT ILLNESS: This is an 81-year-old male well known to me with history of encephalopathy and chronic respiratory failure, status post tracheostomy, G-tube feeding, presented with upper and lower GI bleed and tachycardia was admitted for further treatment and management. The patient has a significant amount of secretions, so the tracheostomy was changed to cuffed one. The patient appeared to be breathing better, but continues to have significant amount of secretions and started on Protonix drip and NG suction. PAST MEDICAL HISTORY: As above. SOCIAL HISTORY: History of smoking in the past. PHYSICAL EXAMINATION: GENERAL: Awake no acute distress. VITAL SIGNS: Temperature 98.0, pulse 90, respiration is 26, blood pressure 100/65, saturation 100%. HEENT: Atraumatic, normocephalic. Pupils react to light and accommodation. Ears, nose and throat normal. NECK: Supple. No JVD. CHEST: There are good breath sounds, few rhonchi bilaterally and no wheezing. HEART: Regular rhythm. tachycardia. No murmurs. ABDOMEN: Soft. EXTREMITIES: No edema. LABORATORY DATA: WBC is 8.4, hemoglobin 10.9, hematocrit 33.3, platelets is 236. Sodium is 129, potassium 4.1, BUN is 65, creatinine 1.5. UA showed large leuko esterase and wbc's. No chest x-ray available at this time. IMPRESSION: This is an 81-year-old male with: 1. Gastrointestinal bleed, possibly upper. 2. Dehydration. 3. Chronic respiratory failure. 4. Dysphagia. 5. Encephalopathy. PLAN: 1. IV fluids. 2. Observe hemoglobin, may need to be transfused. 3. Protonix drip. 4. Nebulizer. 5. Follow up chest x-ray and follow the patient with you. Thank you very much for this consultation. JOB# [id number] FILIBERTO
--- NOTE | 2016-12-17 18:03 | Internal Medicine Prog Note ---
Internal Medicine Subjective - Subjective Service Date: 12/17/16 Patient seen and examined:: with staff Patient is:: awake Per staff patient is:: no adverse event Internal Medicine Objective - Results Result Diagrams: 12/17/16 04:28 12/17/16 04:28 Recent Labs: Laboratory Last Values WBC 9.1 Th/cmm (4.8-10.8) 12/17/16 04:28 RBC 3.24 Mil/cmm (3.80-5.80) L 12/17/16 04:28 Hgb 10.1 gm/dL (12.6-17.4) L 12/17/16 04:28 Hct 30.3 % (39.0-49.0) L 12/17/16 04:28 MCV 93.2 fl (80-99) 12/17/16 04:28 MCH 31.2 pg (27.0-31.0) H 12/17/16 04:28 MCHC Differential 33.4 pg (28.0-36.0) 12/17/16 04:28 RDW 12.9 % (11.5-20.0) 12/17/16 04:28 Plt Count 201 Th/cmm (150-400) 12/17/16 04:28 MPV 9.0 fl 12/17/16 04:28 Neutrophils % 73.8 % (40.0-80.0) 12/17/16 04:28 Lymphocytes % 13.2 % (20.0-50.0) L 12/17/16 04:28 Monocytes % 8.1 % (2.0-10.0) 12/17/16 04:28 Eosinophils % 4.2 % (0.0-5.0) 12/17/16 04:28 Basophils % 0.7 % (0.0-2.0) 12/17/16 04:28 PT 9.7 SECONDS (9.5-11.5) 12/16/16 11:40 INR 0.98 (0.5-1.4) 12/16/16 11:40 PTT (Actin FS) 25.6 SECONDS (26.0-38.0) L 12/16/16 11:40 Sodium 137 mEq/L (136-145) 12/17/16 04:28 Potassium 4.0 mEq/L (3.5-5.1) 12/17/16 04:28 Chloride 101 mEq/L (98-107) 12/17/16 04:28 Carbon Dioxide 30.8 mEq/L (21.0-31.0) 12/17/16 04:28 Anion Gap 9.2 (7.0-16.0) 12/17/16 04:28 BUN 53 mg/dL (7-25) H 12/17/16 04:28 Creatinine 1.4 mg/dL (0.7-1.3) H 12/17/16 04:28 Est GFR ( Amer) TNP 12/17/16 04:28 Est GFR (Non-Af Amer) TNP 12/17/16 04:28 BUN/Creatinine Ratio 37.9 12/17/16 04:28 Glucose 131 mg/dL (70-105) H 12/17/16 04:28 POC Glucose 168 MG/DL (70 - 105) H 12/17/16 16:30 Whole Bld Lactic Acid 1.01 mmol/L (0.60-2.00) 12/16/16 11:40 Calcium 9.7 mg/dL (8.6-10.3) 12/17/16 04:28 Total Bilirubin 0.5 mg/dL (0.3-1.0) 12/17/16 04:28 AST 19 U/L (13-39) 12/17/16 04:28 ALT 16 U/L (7-52) 12/17/16 04:28 Alkaline Phosphatase 63 U/L (34-104) 12/17/16 04:28 Creatine Kinase 122 U/L (30-223) 12/16/16 11:40 C-Reactive Protein 4.20 mg/dL (0.0-0.9) H 12/17/16 04:28 Total Protein 7.4 gm/dL (6.0-8.3) 12/17/16 04:28 Albumin 3.3 gm/dL (4.2-5.5) L 12/17/16 04:28 Globulin 4.1 gm/dL 12/17/16 04:28 Albumin/Globulin Ratio 0.8 (1.0-1.8) L 12/17/16 04:28 Amylase 108 U/L (29-103) H 12/16/16 11:40 Lipase 21 U/L (11-82) 12/16/16 11:40 Urine Source [place] 12/16/16 12:25 Urine Color YELLOW 12/16/16 12:25 Urine Clarity CLOUDY (CLEAR) 12/16/16 12:25 Urine pH 6.5 12/16/16 12:25 Ur Specific [place] 1.020 (1.005-1.030) 12/16/16 12:25 Urine Protein 100 mg/dL (NEGATIVE) H 12/16/16 12:25 Urine Glucose (UA) NEGATIVE mg/dL (NEGATIVE) 12/16/16 12:25 Urine Ketones NEGATIVE mg/dL (NEGATIVE) 12/16/16 12:25 Urine Blood MODERATE (NEGATIVE) H 12/16/16 12:25 Urine Nitrate NEGATIVE (NEGATIVE) 12/16/16 12:25 Urine Bilirubin SMALL (NEGATIVE) H 12/16/16 12:25 Urine Urobilinogen 0.2 E.U./dL (0.2 - 1.0) 12/16/16 12:25 Ur Leukocyte Esterase LARGE (NEGATIVE) H 12/16/16 12:25 Urine RBC 6-8 /hpf (0-5) 12/16/16 12:25 Urine WBC 50-100 /hpf (0-5) H 12/16/16 12:25 Ur Epithelial Cells OCCASIONAL /lpf (FEW) 12/16/16 12:25 Urine Bacteria MANY /hpf (NONE SEEN) 12/16/16 12:25 Gastric Occult Blood POSITIVE 12/16/16 11:30 Stool Occult Blood NEGATIVE (NEGATIVE) 12/17/16 06:20 Theophylline 4.6 ug/mL (10.0-20.0) L 12/16/16 11:40 Blood Type O POSITIVE 12/16/16 11:40 Antibody Screen NEGATIVE 12/16/16 11:40 - Physical Exam Vitals and I&O: Vital Signs Temp 98.4 F 12/17/16 16:00 Pulse 89 12/17/16 17:00 Resp 22 12/17/16 17:00 BP 137/70 12/17/16 17:00 Pulse Ox 100 12/17/16 17:00 Intake & Output 12/16/16 12/17/16 12/17/16 18:59 06:59 18:59 Intake Total 121.5 1084.667 Output Total 1100 1300 Balance -1100 121.5 -215.333 Weight (lbs) 198 lb Intake: Intake, IV Amount 121.5 1084.667 D5-0.9%Ns 1,000 ml @ 80 934.667 mls/hr IV .[id number] [facility] Rx #:[id number] Pantoprazole 80 mg In 71.5 100 Sodium Chloride 0.9% 100 ml @ 10 mls/hr IV Q24HR [facility] Rx#:[id number] Piperacillin Sodium/ 50 50 Tazobact 3.375 gm In Sodium Chloride 0.9% 50 ml @ 100 mls/hr IV Q8H [facility] Rx#:[id number] Oral 0 Output: Gastric Drainage 300 Urine 800 1300 Other: # Bowel Movements 3 3 Stool Characteristics Liquid Liquid Liquid Brown Brown Brown Black Black Active Medications: Current Medications Acetaminophen (Tylenol 650mg/20.3ml Suspension) 650 mg GT Q4H PRN PRN Reason: Fever >101 Stop: 02/14/17 15:12 Acetylcysteine (Mucomyst 10%) 2 ml HHN Q6HR [facility] Stop: 02/14/17 17:59 Last Admin: 12/17/16 12:54 Dose: Not Given Albuterol/Ipratropium (Duoneb Neb) 3 ml HHN Q6HRT [facility] Stop: 02/14/17 18:59 Last Admin: 12/17/16 12:53 Dose: 3 ml Artificial Tears (Artificial Tears Ophth Soln) 1 drop EACH EYE Q6H PRN PRN Reason: dry eyes Stop: 01/15/17 14:56 Bisacodyl (Dulcolax 10 Mg Supp) 10 mg RC DAILY PRN PRN Reason: if MOM ineffective Stop: 02/14/17 14:56 Budesonide (Pulmicort) 0.5 mg HHN Q12HRT [facility] Stop: 02/14/17 18:59 Last Admin: 12/17/16 06:58 Dose: 0.5 mg Chlorhexidine Gluconate (Peridex) 15 ml MM Q12HR [facility] Stop: 02/14/17 20:59 Last Admin: 12/17/16 08:20 Dose: 15 ml Chlorpromazine (Thorazine) 25 mg IM Q8H PRN; Protocol PRN Reason: Hiccups Stop: 02/14/17 16:59 Clonidine HCl (Catapres) 0.1 mg PO Q6H PRN PRN Reason: SBP>160 Stop: 02/14/17 15:14 Docusate Sodium (Colace) 100 mg PO BID [facility] Stop: 02/14/17 16:59 Last Admin: 12/17/16 16:23 Dose: Not Given Epoetin Dennis (Epogen) 10,000 units SUBQ QWEEK 0730 [facility] Stop: 02/16/17 05:59 Piperacillin Sod/Tazobactam (Sod 3.375 gm/ Sodium Chloride) 50 mls @ 100 mls/ hr IV Q8H [facility] Stop: 02/14/17 22:59 Last Admin: 12/17/16 16:28 Dose: 100 mls/hr Pantoprazole Sodium 80 mg/ (Sodium Chloride) 100 mls @ 10 mls/hr IV Q24HR [facility] Stop: 02/14/17 17:44 Last Admin: 12/17/16 12:29 Dose: 10 mls/hr Dextrose/Sodium Chloride (D5-0.9%Ns) 1,000 mls @ 80 mls/hr IV .[id number] [facility] Stop: 02/14/17 21:38 Last Admin: 12/17/16 13:35 Dose: 80 mls/hr Insulin Aspart (Novolog Insulin Sliding Scale) 0 units SUBQ ACHS DANNI PRN Reason: Protocol Stop: 02/14/17 16:29 Last Admin: 12/17/16 17:05 Dose: Not Given Insulin Human NPH (Novolin N) 10 units SUBQ Q12HR [facility] Stop: 02/14/17 20:59 Last Admin: 12/17/16 08:03 Dose: Not Given Lactobacillus Rhamnosus (Culturelle) 1 each GT Q12HR [facility] Stop: 02/14/17 20:59 Last Admin: 12/17/16 08:03 Dose: Not Given Levothyroxine Sodium (Synthroid) 0.05 mg GT QDAC [facility] Stop: 02/15/17 07:29 Last Admin: 12/17/16 08:03 Dose: Not Given Magnesium Hydroxide (Milk Of Magnesia) 30 ml GT HS PRN PRN Reason: Constipation Stop: 02/14/17 14:56 Metoclopramide HCl (Reglan) 10 mg IVP Q8HR [facility] Stop: 02/14/17 20:59 Last Admin: 12/17/16 13:16 Dose: 10 mg Mineral Oil (Mineral Oil 30 Ml) 30 ml GT QID [facility] Stop: 02/15/17 16:59 Last Admin: 12/17/16 16:28 Dose: 30 ml Multivitamins/Vitamin C (Theragran) 1 tab GT DAILY [facility] Stop: 02/15/17 08:59 Last Admin: 12/17/16 08:03 Dose: Not Given Mupirocin (Bactroban Oint) 1 appl NS BID [facility] Stop: 12/22/16 09:01 Last Admin: 12/17/16 16:28 Dose: 1 appl Scopolamine (Transderm Scop Patch) 1 patch TD Q72H [facility] Stop: 02/14/17 17:59 Sodium Phosphate (Fleet Enema) 135 ml RC Q2D PRN PRN Reason: dulcolax ineffective Stop: 02/14/17 14:56 Sucralfate (Carafate) 1 gm GT QID [facility] Stop: 02/14/17 16:59 Last Admin: 12/17/16 16:28 Dose: 1 gm Theophylline (Prieto-Dur) 200 mg GT Q12HR [facility] Stop: 02/14/17 20:59 Last Admin: 12/17/16 08:04 Dose: Not Given General: weak, congested HEENT: NC/AT, PERRLA Neck: Supple Lungs: ronchi Cardiovascular: RRR, Normal S1, Normal S2, without murmur Abdomen: soft non-tender, non-distended, +GT - Procedures Procedures: Procedures Procedure Code Date BLOOD TRANSFUSION SERVICE 47593 02/09/16 EGD DIAGNOSTIC BRUSH WASH 62523 02/09/16 INSPECTION OF UPPER INTESTINAL TRACT, ENDO [id number] 02/09/16 TRANSFUSE NONAUT RED BLOOD CELLS IN PERIPH VEIN, PERC [id number] 02/09/16 Internal Medicine Assmt/Plan - Assessment Assessment: upper GI bleed acute uti acute respiratory failure dehydration htn dm-2 - Plan Plan: ivabx ivf for hydration npo cardio consult montior for fever
[2016-12-18] MEDS: Albuterol/Ipratropium Neb 3 ML AERS HHN SCH ×4 (00:49→18:38)
--- NOTE | 2016-12-18 02:51 | Consultation ---
ATTENDING: Dr. Hermann Andrade. RN GASTROENTEROLOGY: Dr. Rosalio Cruz. REASON FOR CONSULTATION: Worsening kidney function, electrolyte imbalance and fluid management. HISTORY OF PRESENT ILLNESS: This is an 81-year-old Vietnamese with past medical history of chronic kidney disease, who was brought in because of coffee-ground vomitus. One week prior to admission, the patient was noted to have coffee-ground vomitus. He had some green secretions. A few hours prior to admission, his coffee-ground vomitus has worsened. Thus, he was brought to the Emergency Room. He had no diarrhea, melena, hematochezia nor hematemesis. His hemoglobin/hematocrit were 10.9/33.3. Chest x-ray revealed no acute disease. PAST MEDICAL HISTORY: 1. Chronic kidney disease. 2. Respiratory failure, on T-piece. 3. Anoxic encephalopathy. 4. Type 2 diabetes mellitus. 5. Essential hypertension. 6. Coronary artery disease. 7. Anemia of chronic disease, on Epogen. 8. DJD. 9. Hypothyroidism. PAST SURGICAL HISTORY: Status post CABG. CURRENT MEDICATIONS: He is currently on acetaminophen, acetylcysteine, albuterol/ipratropium, bisacodyl, budesonide, chlorhexidine, docusate sodium, Epogen, insulin isophane, Lactobacillus rhamnosus, levothyroxine, magnesium hydroxide, metoclopramide, mineral oil, multivitamin, ____, pantoprazole, scopolamine, sucralfate, theophylline, Zosyn, Thorazine, clonidine p.r.n. ALLERGIES: No known drug allergies. SOCIAL AND FAMILY HISTORY: I was unable to obtain from the patient because he is on a ventilator. REVIEW OF SYSTEMS: CONSTITUTIONAL: Again, I was unable to decipher directly from the patient; however, as per transfer notes, the patient has a gastrostomy tube feeding, no fever, no chills. HEENT: No mention of headaches, no dizziness. CARDIORESPIRATORY: Currently on a T-piece. No chest pain, palpitations, diaphoresis, cough. No shortness of breath. GASTROINTESTINAL: He had coffee-ground vomitus, but no hematemesis, melena, hematochezia, diarrhea. ENDOCRINE: He has a history of diabetes and hypothyroidism. MUSCULOSKELETAL: Multiple joint arthralgias. GENITOURINARY: History of chronic kidney disease. Urinalysis suggestive of uncomplicated urinary tract infection. HEMATOLOGIC: History of anemia, on Epogen, but this is more likely of chronic kidney disease. NEUROPSYCHIATRIC: No syncopal episode or seizure activity. He has anoxic encephalopathy. PHYSICAL EXAMINATION: GENERAL: The patient is awake, on a T-piece, not in any distress. VITAL SIGNS: His blood pressure is 115/50, pulse 75, afebrile. SKIN: Poor turgor, warm. No rash, no jaundice appreciated. HEENT: Head: Normocephalic, atraumatic. Eyes: Extraocular muscles intact. Pupils equal, round, reactive to light and accommodate. Anicteric sclerae, pale conjunctivae. Nose: Midline nasal septum. Mouth: Dry mucosa with poor dentition. NECK: Supple. No adenopathy, no thyromegaly, no bruits. Trachea palpated in the midline. CHEST AND CARDIOVASCULAR: S1, S2. No rub, murmur, no gallop appreciated. Point of maximal impulse, fifth intercostal space ____ midclavicular line. No abdominal or femoral bruits appreciated. LUNGS: Equal expansion. No use of accessory muscles. No supraclavicular retractions. A few rhonchi, but no rales nor wheezes appreciated. ABDOMEN: Mildly globular, soft. Positive for bowel sounds. No bruits either diastolic or systolic. RECTAL: Lax sphincter tone. GENITOURINARY: Normal-appearing male genitalia with indwelling Burns catheter. MUSCULOSKELETAL: No effusions present in his joints, but unable to assess his range of motion. EXTREMITIES: No evidence of any edema, cyanosis, or clubbing. He has bilateral ____ of both upper extremities. NEUROLOGIC: The patient is awake, but remains nonconversive, possibly a vegetative stage. LABORATORY DATA: Sodium 137, potassium 4, chloride 101, bicarbonate 30, BUN 53, creatinine 1.4, glucose 131, calcium 9.7, CRP 4.2, albumin 3.3. KUB showed mild ileus. White count 9.1, hemoglobin 10.1, hematocrit 30.3, polys 73.8%, platelets 201. IMPRESSION: 1. Acute kidney injury on chronic kidney disease, MDRD GFR 51.8 mL per minute stage 3. The patient's chronic kidney disease is secondary to diabetic nephropathy ____ hypertensive sclerosis. 2. Acute kidney injury is likely initially prerenal in nature. His urinalysis was suggestive of a very concentrated urine. His physical exam revealed dry oral mucosa with poor skin turgor. These are all suggestive of underlying dehydration, which could give rise to a decrease in effective circulating volume. Thus, his prerenal azotemia may progress to acute tubular injury. 3. He also has an ongoing urinary tract infection, which could eventually give rise to acute interstitial nephritis. 4. Coffee-ground vomitus, possibly erosive esophagitis/gastritis/peptic ulcer disease. Doubt the presence of varices. 5. Respiratory failure, on T-piece. 6. Anoxic encephalopathy. 7. Type 2 diabetes mellitus with chronic kidney disease. 8. Essential hypertension with chronic kidney disease. 9. Coronary artery disease, status post coronary artery bypass graft. 10. Anemia of chronic kidney disease, but there is no acute drop in his hemoglobin/hematocrit even with the presence of coffee-ground vomitus. 11. Degenerative joint disease. 12. Hypothyroidism. 13. Moderate malnutrition. 14. Uncomplicated urinary tract infection. PLAN: 1. PPI. 2. Low intermittent suction. 3. IV fluids. 4. Urine C and S. 5. ____ sodium. 6. A 24-hour urine collection. 7. Renal ultrasound. Thank you, Dr. nAdrade, for this consult. I will follow the patient closely with you. JOB# [id number]
[2016-12-18] MEDS: D5-0.9%NS 1,000 ML IV SCH ×2 (03:03→17:02)
--- NOTE | 2016-12-18 05:05 | Consultation ---
The patient is in ICU. This 81-year-old male was seen and examined through the courtesy of Dr. Andrade. The patient was admitted here with history of coffee-ground emesis, GI bleeding. He does have history of coronary artery disease, history of hypertension, history of anemia, chronic kidney disease and anoxic encephalopathy. He has a previous trach and ____T tube, but he is not on the ventilator. He was noticed to have cardiac arrhythmia, PVCs on the 2 episodes of 3 PVCs in a row, nonsustained V-tach. PAST MEDICAL HISTORY: ____ childhood, there is no history of rheumatic fever, no scarlet fever and the information obtained from the chart, there is no history available from the patient. REVIEW OF SYSTEMS: Not available from the patient. PHYSICAL EXAMINATION: VITAL SIGNS: Heart rate was 79, sinus rhythm, occasional PVCs, blood pressure 144/60, respiration rate 20, O2 saturation 100%, afebrile. HEENT: Head normocephalic. Eyes, conjunctivae is pink, there is no icterus in the eyes, pupils reactive to light. There were no increased jugular venous distention, no thyromegaly, no lymphadenopathy. Carotids equal both sides. CHEST: Bilaterally symmetrical, moved well by respiration. Respiratory movements were equal both sides. Trachea is central. There is note____ to percussion, breath sound reveals some few scattered rales. CARDIOVASCULAR: PMI not well localized and no positional thrill, no parasternal heave, S1 normal, S2 physiologic. No S3, no rub. ABDOMEN: Soft, no tenderness, no rigidity, no guarding, no organomegaly. Bowel sounds normal. There is no calf tenderness. Radial pulses diminished. EKG showed sinus rhythm, rare PVCs. Sodium was 137, potassium 4.0, chloride 101, CO2 30.8, BUN 53, creatinine 1.4, glucose 131, calcium 9.7. WBC count was 9.1, hemoglobin 10.1, hematocrit 30.3, platelet count was 201. Chest x-ray reveals an increase in the bronchovesicular markings. IMPRESSION: Cardiac arrhythmia, ventricular arrhythmia, nonsustained V tach ____one episode, coronary artery disease, hypertension, anemia, chronic kidney disease, gastrointestinal bleeding, anoxic encephalopathy. DISCUSSION: This 81-year-old who has ____surgery to continue cardiac monitoring. We will closely watch on electrolytes, BUN, creatinine and magnesium level. We will also get lipid profile. The patient should be on some statins also. The patient is to also get echocardiogram to evaluate left ventricular function and valvular structure. Further recommendation will be made depending on the rest of the tests available and Dr. Charlee Rice will be following the patient now. JOB# [id number]
[2016-12-18 05:19] LABS: % BASOPHILS 1.2 % (0.0-2.0); % EOSINOPHILS 4.5 % (0.0-5.0); % LYMPHOCYTES 18.6 % (20.0-50.0); % MONOCYTES 9.5 % (2.0-10.0); % NEUTROPHILS 66.2 % (40.0-80.0); HEMOGLOBIN 8.8 gm/dL (12.6-17.4); MEAN CELL VOLUME 93.1 fl (80-99); MEAN CORPUSCULAR HEMOGLOBIN 31.1 pg (27.0-31.0); MEAN CORPUSCULAR HGB CONC 33.4 pg (28.0-36.0); MEAN PLATELET VOLUME 8.1 fl; NEUTROPHILE ABSOLUTE 5.3 Th/cmm (1.8-8.0); PLATELET COUNT 212 Th/cmm (150-400); RED BLOOD COUNT 2.84 Mil/cmm (3.80-5.80); WHITE BLOOD COUNT 8.1 Th/cmm (4.8-10.8)
[2016-12-18 05:23] LABS: HEMATOCRIT 26.4 % (39.0-49.0)
[2016-12-18 05:31] LABS: ALB/GLOB RATIO 0.8 (1.0-1.8); ALKALINE PHOSPHATASE 51 U/L (34-104); ANION GAP 4.7 (7.0-16.0); BILIRUBIN,TOTAL 0.4 mg/dL (0.3-1.0); BUN - UREA NITROGEN 36 mg/dL (7-25); BUN/CREATININE RATIO 25.7; CALCIUM SERUM 9.3 mg/dL (8.6-10.3); CARBON DIOXIDE 29.1 mEq/L (21.0-31.0); CHLORIDE 108 mEq/L (98-107); CREATININE - SERUM 1.4 mg/dL (0.7-1.3); GLUCOSE 147 mg/dL (70-105); MAGNESIUM 2.3 mg/dL (1.9-2.7); PHOSPHOROUS 2.3 mg/dL (2.5-5.0); POTASSIUM SERUM 3.8 mEq/L (3.5-5.1); SGOT 15 U/L (13-39); SGPT/ALT 13 U/L (7-52); SODIUM SERUM 138 mEq/L (136-145)
[2016-12-18 05:32] LABS: CHOLESTEROL 101 mg/dL (<200); TRIGLYCERIDES 109 mg/dL (<150)
--- NOTE | 2016-12-18 05:54 | Consultation ---
REASON FOR CONSULTATION: GI bleeding and increased gastric residuals. HISTORY OF PRESENT ILLNESS: This consult was obtained through the courtesy of Dr. Andrade and Dr. Helga Angulo for this 81-year-old with history of anoxic encephalopathy complicating a CABG, history of coronary artery disease, diabetes, hypertension, hypothyroidism and now status post tracheostomy, status post G-tube who was admitted to the hospital for coffee-ground emesis over a few days from the correction. Apparently, the patient has history of anemia. He was here in January of last year and he had an endoscopy that showed gastritis. There was a mention of a colonoscopy, but we do not have any records that it was done. The patient was admitted at this time for the coffee-ground emesis. He had high residuals in the first 500 mL, was drained out of the stomach, then after that another 300 and it was all coffee-ground material. Unfortunately, the patient is not able to provide any history. PAST MEDICAL HISTORY: Diabetes, hypertension, coronary artery disease, hypothyroidism and anoxic encephalopathy. PAST SURGICAL HISTORY: He had CABG. He had tracheostomy and has a G-tube. SOCIAL HISTORY: Not known, but at this time, the patient is in a correction. He is nonsmoker, nonalcoholic and non-IV drug abuser. FAMILY HISTORY: Unobtainable, noncontributory. REVIEW OF SYSTEMS: Unobtainable. ALLERGIES: No known drug allergies. MEDICATIONS: When patient came here, he was started on Tylenol, Mucomyst, DuoNeb, Dulcolax, Pulmicort, Thorazine, Catapres, Colace, Epogen, insulin, Culturelle, Synthroid, Milk Of Magnesia, Reglan, vitamin C, Theragran, Protonix, which I started yesterday as a continuous drip, Carafate and Brent. PHYSICAL EXAMINATION: GENERAL: The patient is awake, but nonverbal and noncommunicating. He is intubated. VITAL SIGNS: Blood pressure is 113/95, heart rate is 88, respiratory rate is 26 and temperature was 98. HEAD AND NECK: Pupils reactive to light. Extraocular muscles could not be tested. Oral cavity could not be tested. Neck showed tracheostomy. CHEST: Showed good air entry. LUNGS: Showed bilateral rhonchi. CARDIOVASCULAR SYSTEM: Regular rate and rhythm. No murmur or gallop. ABDOMEN: Obese and distended. There is a G-tube in place. It has some coffee ground drainage from it; otherwise, abdomen showed good bowel sounds and the abdomen did not seem to be tender. EXTREMITIES: Lower extremities, no edema. CENTRAL NERVOUS SYSTEM: Unable to evaluate; the patient has contracted posture. LABORATORY DATA: Hemoglobin on presentation was 10.9, now was 10.1 and platelets were of 236. PT is normal. Sodium was low as 129, now was 137. BUN and creatinine are 53 and 1.4. Liver enzymes were normal, C-reactive protein was high as 4.2. The patient had a chest x-ray which did not show any acute illnesses. IMPRESSION: This 81-year-old with multiple medical problems, now with coffee-ground aspirate from the stomach and increased gastric residuals. ASSESSMENT AND PLAN: 1. Coffee ground emesis. This is most likely refluxed minor GI bleed, could be small ulcer, could be gastritis, could be a tiny [place]-Sampson tear. H and H is stable. The patient had an endoscopy in January of last year, which showed only gastritis and hiatal hernia. At this time, H and H are stable. There was no reason to expose him to another endoscopy. I would continue with the Protonix. I would watch his H/ H. If there is a significant drop of nikki bleeding, then we will consider repeat endoscopy, if not, then we will resume his feeding in a day or two depending on how high is his residuals. Also last year when he was here, there was a mention of a colonoscopy. I do not see any note of it right now, so we will try to get more records from the medical records for future reference. 2. Increase gastric residual. This could reflex sepsis. The patient has a high CRP level. We will get a KUB rule out ileus. Continue his Reglan and then further recommendations to follow. Other medical problems such as diabetes, hypertension, coronary artery disease and hypothyroidism, etc., as per Dr. Andrade. Thank you, Dr. Andrade for allowing me to participate in the care of this patient. If you have any further questions, please let me know. JOB# [id number] [facility]
[2016-12-18] MEDS ORDERED: Epoetin Alfa 20000 Units/mL Vial SUBQ SCH ×2 (06:00→15:00)
[2016-12-18] MEDS: Metoclopramide 5 mg/mL 2mL Vial IVP SCH ×3 (06:53→21:26)
[2016-12-18] MEDS: INSULIN ASPART SLIDING SCALE 100 UNITS/ML UNIT SUBQ SCH ×4 (06:54→21:29)
[2016-12-18] MEDS: Budesonide 0.5 Mg/2 mL Ud HHN SCH ×2 (07:07→18:39)
[2016-12-18] MEDS: Levothyroxine 0.05 Mg Tab GT SCH (07:30)
[2016-12-18] MEDS: Lactobacillus Rhamnosus 10 Billion CFU Capsule GT SCH ×2 (08:46→21:31)
[2016-12-18] MEDS: Theophylline 80 mg/15 mL UDC GT SCH ×2 (08:47→21:31)
[2016-12-18] MEDS: Multivitamin Tab GT SCH (08:47)
[2016-12-18] MEDS: INSULIN HUMAN ISOPHANE (NPH) 100 UNITS/ML SUBQ SCH ×2 (08:51→21:30)
[2016-12-18] MEDS: Chlorhexidine Gluconate 0.12% 480mL Bottle MM SCH ×2 (08:59→21:29)
--- NOTE | 2016-12-18 11:59 | Diagnostic Imaging Report ---
Renal ultrasound HISTORY: Abnormal renal function test The exam is extremely limited and suboptimal due to patient size, body habitus, and respiratory motion. There is poor delineation of the margins of the right kidney that measures approximately 10.1 x 5.2 x 4.8 cm. No obvious focal lesions or hydronephrosis. The left kidney cannot be clearly visualized. The urinary bladder cannot be evaluated due to lack of distention. IMPRESSION: 1. Extremely limited suboptimal exam due to patient size, body habitus, and respiratory motion. Poor visualization of the right kidney with no obvious focal lesions or hydronephrosis. The left kidney could not be visualized.
--- NOTE | 2016-12-18 12:29 | Internal Medicine Prog Note ---
Internal Medicine Subjective - Subjective Service Date: 12/18/16 Patient seen and examined:: with staff Patient is:: awake Per staff patient is:: no adverse event Internal Medicine Objective - Results Result Diagrams: 12/18/16 04:50 12/18/16 04:50 Recent Labs: Laboratory Last Values WBC 8.1 Th/cmm (4.8-10.8) 12/18/16 04:50 RBC 2.84 Mil/cmm (3.80-5.80) L 12/18/16 04:50 Hgb 8.8 gm/dL (12.6-17.4) L 12/18/16 04:50 Hct 26.4 % (39.0-49.0) L D 12/18/16 04:50 MCV 93.1 fl (80-99) 12/18/16 04:50 MCH 31.1 pg (27.0-31.0) H 12/18/16 04:50 MCHC Differential 33.4 pg (28.0-36.0) 12/18/16 04:50 RDW 13.0 % (11.5-20.0) 12/18/16 04:50 Plt Count 212 Th/cmm (150-400) 12/18/16 04:50 MPV 8.1 fl 12/18/16 04:50 Neutrophils % 66.2 % (40.0-80.0) 12/18/16 04:50 Lymphocytes % 18.6 % (20.0-50.0) L 12/18/16 04:50 Monocytes % 9.5 % (2.0-10.0) 12/18/16 04:50 Eosinophils % 4.5 % (0.0-5.0) 12/18/16 04:50 Basophils % 1.2 % (0.0-2.0) 12/18/16 04:50 Eos Smear Source URINE 12/17/16 21:00 Eos Smear Total Cells NONE SEEN (NONE SEEN) 12/17/16 21:00 PT 9.7 SECONDS (9.5-11.5) 12/16/16 11:40 INR 0.98 (0.5-1.4) 12/16/16 11:40 PTT (Actin FS) 25.6 SECONDS (26.0-38.0) L 12/16/16 11:40 Sodium 138 mEq/L (136-145) 12/18/16 04:50 Potassium 3.8 mEq/L (3.5-5.1) 12/18/16 04:50 Chloride 108 mEq/L (98-107) H 12/18/16 04:50 Carbon Dioxide 29.1 mEq/L (21.0-31.0) 12/18/16 04:50 Anion Gap 4.7 (7.0-16.0) L 12/18/16 04:50 BUN 36 mg/dL (7-25) H 12/18/16 04:50 Creatinine 1.4 mg/dL (0.7-1.3) H 12/18/16 04:50 Est GFR ( Amer) TNP 12/18/16 04:50 Est GFR (Non-Af Amer) TNP 12/18/16 04:50 BUN/Creatinine Ratio 25.7 12/18/16 04:50 Glucose 147 mg/dL (70-105) H 12/18/16 04:50 POC Glucose 152 MG/DL (70 - 105) H 12/18/16 06:42 Whole Bld Lactic Acid 1.01 mmol/L (0.60-2.00) 12/16/16 11:40 Calcium 9.3 mg/dL (8.6-10.3) 12/18/16 04:50 Phosphorus 2.3 mg/dL (2.5-5.0) L 12/18/16 04:50 Magnesium 2.3 mg/dL (1.9-2.7) 12/18/16 04:50 Total Bilirubin 0.4 mg/dL (0.3-1.0) 12/18/16 04:50 AST 15 U/L (13-39) 12/18/16 04:50 ALT 13 U/L (7-52) 12/18/16 04:50 Alkaline Phosphatase 51 U/L (34-104) 12/18/16 04:50 Creatine Kinase 122 U/L (30-223) 12/16/16 11:40 C-Reactive Protein 4.20 mg/dL (0.0-0.9) H 12/17/16 04:28 B-Natriuretic Peptide 163.0 pg/mL (5.0-100.0) H 12/18/16 04:50 Total Protein 7.0 gm/dL (6.0-8.3) 12/18/16 04:50 Albumin 3.2 gm/dL (4.2-5.5) L 12/18/16 04:50 Globulin 3.8 gm/dL 12/18/16 04:50 Albumin/Globulin Ratio 0.8 (1.0-1.8) L 12/18/16 04:50 Triglycerides 109 mg/dL (<150) 12/18/16 04:50 Cholesterol 101 mg/dL (<200) 12/18/16 04:50 LDL Cholesterol Direct 51 mg/dL (75-193) L 12/18/16 04:50 HDL Cholesterol 31 mg/dL (23-92) 12/18/16 04:50 Amylase 108 U/L (29-103) H 12/16/16 11:40 Lipase 21 U/L (11-82) 12/16/16 11:40 Urine Source [place] 12/16/16 12:25 Urine Color YELLOW 12/16/16 12:25 Urine Clarity CLOUDY (CLEAR) 12/16/16 12:25 Urine pH 6.5 12/16/16 12:25 Ur Specific [place] 1.020 (1.005-1.030) 12/16/16 12:25 Urine Protein 100 mg/dL (NEGATIVE) H 12/16/16 12:25 Urine Glucose (UA) NEGATIVE mg/dL (NEGATIVE) 12/16/16 12:25 Urine Ketones NEGATIVE mg/dL (NEGATIVE) 12/16/16 12:25 Urine Blood MODERATE (NEGATIVE) H 12/16/16 12:25 Urine Nitrate NEGATIVE (NEGATIVE) 12/16/16 12:25 Urine Bilirubin SMALL (NEGATIVE) H 12/16/16 12:25 Urine Urobilinogen 0.2 E.U./dL (0.2 - 1.0) 12/16/16 12:25 Ur Leukocyte Esterase LARGE (NEGATIVE) H 12/16/16 12:25 Urine RBC 6-8 /hpf (0-5) 12/16/16 12:25 Urine WBC 50-100 /hpf (0-5) H 12/16/16 12:25 Ur Epithelial Cells OCCASIONAL /lpf (FEW) 12/16/16 12:25 Urine Bacteria MANY /hpf (NONE SEEN) 12/16/16 12:25 Ur Random Sodium 87 mmol/L 12/17/16 21:00 Urine Creatinine 60.0 mg/dl (39.0-259.0) 12/17/16 21:00 Gastric Occult Blood POSITIVE 12/16/16 11:30 Stool Occult Blood NEGATIVE (NEGATIVE) 12/17/16 06:20 Theophylline 4.6 ug/mL (10.0-20.0) L 12/16/16 11:40 Blood Type O POSITIVE 12/16/16 11:40 Antibody Screen NEGATIVE 12/16/16 11:40 - Physical Exam Vitals and I&O: Vital Signs Temp 98 F 12/18/16 08:00 Pulse 85 12/18/16 08:00 Resp 19 12/18/16 08:00 BP 149/65 12/18/16 08:00 Pulse Ox 100 12/18/16 08:00 Intake & Output 12/17/16 12/18/16 12/18/16 18:59 06:59 18:59 Intake Total 9533.134 2188.333 Output Total 1850 600 Balance -655.333 863.333 Weight (lbs) 198 lb Intake: Intake, IV Amount 7915.697 3665.333 D5-0.9%Ns 1,000 ml @ 80 955.574 1592.333 mls/hr IV .[id number] [facility] Rx #:[id number] Pantoprazole 80 mg In 100 100 Sodium Chloride 0.9% 100 ml @ 10 mls/hr IV Q24HR [facility] Rx#:[id number] Piperacillin Sodium/ 100 50 Tazobact 3.375 gm In Sodium Chloride 0.9% 50 ml @ 100 mls/hr IV Q8H [facility] Rx#:[id number] Oral 0 Other 60 100 Output: Urine 1850 600 Other: # Bowel Movements 1 Stool Characteristics Liquid Brown Active Medications: Current Medications Acetaminophen (Tylenol 650mg/20.3ml Suspension) 650 mg GT Q4H PRN PRN Reason: Fever >101 Stop: 02/14/17 15:12 Acetylcysteine (Mucomyst 10%) 2 ml HHN Q6HR [facility] Stop: 02/14/17 17:59 Last Admin: 12/18/16 07:09 Dose: Not Given Albuterol/Ipratropium (Duoneb Neb) 3 ml HHN Q6HRT [facility] Stop: 02/14/17 18:59 Last Admin: 12/18/16 07:07 Dose: 3 ml Artificial Tears (Artificial Tears Ophth Soln) 1 drop EACH EYE Q6H PRN PRN Reason: dry eyes Stop: 01/15/17 14:56 Bisacodyl (Dulcolax 10 Mg Supp) 10 mg RC DAILY PRN PRN Reason: if MOM ineffective Stop: 02/14/17 14:56 Budesonide (Pulmicort) 0.5 mg HHN Q12HRT [facility] Stop: 02/14/17 18:59 Last Admin: 12/18/16 07:07 Dose: 0.5 mg Chlorhexidine Gluconate (Peridex) 15 ml MM Q12HR [facility] Stop: 02/14/17 20:59 Last Admin: 12/18/16 08:59 Dose: 15 ml Chlorpromazine (Thorazine) 25 mg IM Q8H PRN; Protocol PRN Reason: Hiccups Stop: 02/14/17 16:59 Clonidine HCl (Catapres) 0.1 mg PO Q6H PRN PRN Reason: SBP>160 Stop: 02/14/17 15:14 Docusate Sodium (Colace) 100 mg PO BID [facility] Stop: 02/14/17 16:59 Last Admin: 12/18/16 08:46 Dose: 100 mg Epoetin Dennis (Epogen) 10,000 units SUBQ QMON [facility] Stop: 02/16/17 14:59 Piperacillin Sod/Tazobactam (Sod 3.375 gm/ Sodium Chloride) 50 mls @ 100 mls/ hr IV Q8H [facility] Stop: 02/14/17 22:59 Last Admin: 12/18/16 06:53 Dose: 100 mls/hr Pantoprazole Sodium 80 mg/ (Sodium Chloride) 100 mls @ 10 mls/hr IV Q24HR [facility] Stop: 02/14/17 17:44 Last Admin: 12/17/16 22:58 Dose: 10 mls/hr Dextrose/Sodium Chloride (D5-0.9%Ns) 1,000 mls @ 80 mls/hr IV .[id number] [facility] Stop: 02/14/17 21:38 Last Infusion: 12/18/16 05:43 Dose: 80 mls/hr Insulin Aspart (Novolog Insulin Sliding Scale) 0 units SUBQ ACHS [facility] PRN Reason: Protocol Stop: 02/14/17 16:29 Last Admin: 12/18/16 06:54 Dose: 2 units Insulin Human NPH (Novolin N) 10 units SUBQ Q12HR [facility] Stop: 02/14/17 20:59 Last Admin: 12/18/16 08:51 Dose: 10 units Lactobacillus Rhamnosus (Culturelle) 1 each GT Q12HR [facility] Stop: 02/14/17 20:59 Last Admin: 12/18/16 08:46 Dose: 1 each Levothyroxine Sodium (Synthroid) 0.05 mg GT QDAC [facility] Stop: 02/15/17 07:29 Last Admin: 12/18/16 07:30 Dose: 0.05 mg Magnesium Hydroxide (Milk Of Magnesia) 30 ml GT HS PRN PRN Reason: Constipation Stop: 02/14/17 14:56 Metoclopramide HCl (Reglan) 10 mg IVP Q8HR [facility] Stop: 02/14/17 20:59 Last Admin: 12/18/16 06:53 Dose: 10 mg Mineral Oil (Mineral Oil 30 Ml) 30 ml GT QID [facility] Stop: 02/15/17 16:59 Last Admin: 12/18/16 08:47 Dose: 30 ml Multivitamins/Vitamin C (Theragran) 1 tab GT DAILY [facility] Stop: 02/15/17 08:59 Last Admin: 12/18/16 08:47 Dose: 1 tab Mupirocin (Bactroban Oint) 1 appl NS BID [facility] Stop: 12/22/16 09:01 Last Admin: 12/18/16 08:50 Dose: 1 appl Scopolamine (Transderm Scop Patch) 1 patch TD Q72H [facility] Stop: 02/14/17 17:59 Sodium Phosphate (Fleet Enema) 135 ml RC Q2D PRN PRN Reason: dulcolax ineffective Stop: 02/14/17 14:56 Sucralfate (Carafate) 1 gm GT QID [facility] Stop: 02/14/17 16:59 Last Admin: 12/18/16 08:47 Dose: 1 gm Theophylline (Prieto-Dur) 200 mg GT Q12HR [facility] Stop: 02/14/17 20:59 Last Admin: 12/18/16 08:47 Dose: 200 mg General: alert HEENT: NC/AT, PERRLA Neck: Supple Lungs: CTAB Cardiovascular: RRR, Normal S1, Normal S2, without murmur Abdomen: soft non-tender, non-distended Extremities: clear - Procedures Procedures: Procedures Procedure Code Date BLOOD TRANSFUSION SERVICE 22695 02/09/16 EGD DIAGNOSTIC BRUSH WASH 82891 02/09/16 INSPECTION OF UPPER INTESTINAL TRACT, ENDO [id number] 02/09/16 TRANSFUSE NONAUT RED BLOOD CELLS IN PERIPH VEIN, PERC 27629Q0 02/09/16 Internal Medicine Assmt/Plan - Assessment Assessment: upper GI bleed acute uti acute respiratory failure dehydration htn dm-2 - Plan Plan: 24hour urine crea. clearance egd tomorrow ivabx ivf for hydration npo montior for fever
--- NOTE | 2016-12-18 13:32 | General Progress Note ---
Subjective - Review of Systems Service Date: 12/18/16 Subjective: eyes open, on T piece, comfortable, no further N/V Objective - Results Result Diagrams: 12/18/16 04:50 12/18/16 04:50 Recent Labs: Laboratory Last Values WBC 8.1 Th/cmm (4.8-10.8) 12/18/16 04:50 RBC 2.84 Mil/cmm (3.80-5.80) L 12/18/16 04:50 Hgb 8.8 gm/dL (12.6-17.4) L 12/18/16 04:50 Hct 26.4 % (39.0-49.0) L D 12/18/16 04:50 MCV 93.1 fl (80-99) 12/18/16 04:50 MCH 31.1 pg (27.0-31.0) H 12/18/16 04:50 MCHC Differential 33.4 pg (28.0-36.0) 12/18/16 04:50 RDW 13.0 % (11.5-20.0) 12/18/16 04:50 Plt Count 212 Th/cmm (150-400) 12/18/16 04:50 MPV 8.1 fl 12/18/16 04:50 Neutrophils % 66.2 % (40.0-80.0) 12/18/16 04:50 Lymphocytes % 18.6 % (20.0-50.0) L 12/18/16 04:50 Monocytes % 9.5 % (2.0-10.0) 12/18/16 04:50 Eosinophils % 4.5 % (0.0-5.0) 12/18/16 04:50 Basophils % 1.2 % (0.0-2.0) 12/18/16 04:50 Eos Smear Source URINE 12/17/16 21:00 Eos Smear Total Cells NONE SEEN (NONE SEEN) 12/17/16 21:00 PT 9.7 SECONDS (9.5-11.5) 12/16/16 11:40 INR 0.98 (0.5-1.4) 12/16/16 11:40 PTT (Actin FS) 25.6 SECONDS (26.0-38.0) L 12/16/16 11:40 Sodium 138 mEq/L (136-145) 12/18/16 04:50 Potassium 3.8 mEq/L (3.5-5.1) 12/18/16 04:50 Chloride 108 mEq/L (98-107) H 12/18/16 04:50 Carbon Dioxide 29.1 mEq/L (21.0-31.0) 12/18/16 04:50 Anion Gap 4.7 (7.0-16.0) L 12/18/16 04:50 BUN 36 mg/dL (7-25) H 12/18/16 04:50 Creatinine 1.4 mg/dL (0.7-1.3) H 12/18/16 04:50 Est GFR ( Amer) TNP 12/18/16 04:50 Est GFR (Non-Af Amer) TNP 12/18/16 04:50 BUN/Creatinine Ratio 25.7 12/18/16 04:50 Glucose 147 mg/dL (70-105) H 12/18/16 04:50 POC Glucose 152 MG/DL (70 - 105) H 12/18/16 06:42 Whole Bld Lactic Acid 1.01 mmol/L (0.60-2.00) 12/16/16 11:40 Calcium 9.3 mg/dL (8.6-10.3) 12/18/16 04:50 Phosphorus 2.3 mg/dL (2.5-5.0) L 12/18/16 04:50 Magnesium 2.3 mg/dL (1.9-2.7) 12/18/16 04:50 Total Bilirubin 0.4 mg/dL (0.3-1.0) 12/18/16 04:50 AST 15 U/L (13-39) 12/18/16 04:50 ALT 13 U/L (7-52) 12/18/16 04:50 Alkaline Phosphatase 51 U/L (34-104) 12/18/16 04:50 Creatine Kinase 122 U/L (30-223) 12/16/16 11:40 C-Reactive Protein 4.20 mg/dL (0.0-0.9) H 12/17/16 04:28 B-Natriuretic Peptide 163.0 pg/mL (5.0-100.0) H 12/18/16 04:50 Total Protein 7.0 gm/dL (6.0-8.3) 12/18/16 04:50 Albumin 3.2 gm/dL (4.2-5.5) L 12/18/16 04:50 Globulin 3.8 gm/dL 12/18/16 04:50 Albumin/Globulin Ratio 0.8 (1.0-1.8) L 12/18/16 04:50 Triglycerides 109 mg/dL (<150) 12/18/16 04:50 Cholesterol 101 mg/dL (<200) 12/18/16 04:50 LDL Cholesterol Direct 51 mg/dL (75-193) L 12/18/16 04:50 HDL Cholesterol 31 mg/dL (23-92) 12/18/16 04:50 Amylase 108 U/L (29-103) H 12/16/16 11:40 Lipase 21 U/L (11-82) 12/16/16 11:40 Urine Source [place] 12/16/16 12:25 Urine Color YELLOW 12/16/16 12:25 Urine Clarity CLOUDY (CLEAR) 12/16/16 12:25 Urine pH 6.5 12/16/16 12:25 Ur Specific [place] 1.020 (1.005-1.030) 12/16/16 12:25 Urine Protein 100 mg/dL (NEGATIVE) H 12/16/16 12:25 Urine Glucose (UA) NEGATIVE mg/dL (NEGATIVE) 12/16/16 12:25 Urine Ketones NEGATIVE mg/dL (NEGATIVE) 12/16/16 12:25 Urine Blood MODERATE (NEGATIVE) H 12/16/16 12:25 Urine Nitrate NEGATIVE (NEGATIVE) 12/16/16 12:25 Urine Bilirubin SMALL (NEGATIVE) H 12/16/16 12:25 Urine Urobilinogen 0.2 E.U./dL (0.2 - 1.0) 12/16/16 12:25 Ur Leukocyte Esterase LARGE (NEGATIVE) H 12/16/16 12:25 Urine RBC 6-8 /hpf (0-5) 12/16/16 12:25 Urine WBC 50-100 /hpf (0-5) H 12/16/16 12:25 Ur Epithelial Cells OCCASIONAL /lpf (FEW) 12/16/16 12:25 Urine Bacteria MANY /hpf (NONE SEEN) 12/16/16 12:25 Ur Random Sodium 87 mmol/L 12/17/16 21:00 Urine Creatinine 60.0 mg/dl (39.0-259.0) 12/17/16 21:00 Gastric Occult Blood POSITIVE 12/16/16 11:30 Stool Occult Blood NEGATIVE (NEGATIVE) 12/17/16 06:20 Theophylline 4.6 ug/mL (10.0-20.0) L 12/16/16 11:40 Blood Type O POSITIVE 12/16/16 11:40 Antibody Screen NEGATIVE 12/16/16 11:40 - Physical Exam Vitals and I&O: Vital Signs Temp 98.8 F 12/18/16 12:00 Pulse 82 12/18/16 13:05 Resp 18 12/18/16 13:05 BP 138/40 12/18/16 12:00 Pulse Ox 100 12/18/16 13:05 Intake & Output 12/17/16 12/18/16 12/18/16 18:59 06:59 18:59 Intake Total 9159.453 8651.333 Output Total 1850 600 Balance -655.333 863.333 Weight (lbs) 89.811 kg Intake: Intake, IV Amount 1955.958 2522.333 D5-0.9%Ns 1,000 ml @ 80 246.641 8583.333 mls/hr IV .[id number] [facility] Rx #:[id number] Pantoprazole 80 mg In 100 100 Sodium Chloride 0.9% 100 ml @ 10 mls/hr IV Q24HR [facility] Rx#:[id number] Piperacillin Sodium/ 100 50 Tazobact 3.375 gm In Sodium Chloride 0.9% 50 ml @ 100 mls/hr IV Q8H [facility] Rx#:[id number] Oral 0 Other 60 100 Output: Urine 1850 600 Other: # Bowel Movements 1 Stool Characteristics Liquid Brown Active Medications: Current Medications Acetaminophen (Tylenol 650mg/20.3ml Suspension) 650 mg GT Q4H PRN PRN Reason: Fever >101 Stop: 02/14/17 15:12 Acetylcysteine (Mucomyst 10%) 2 ml HHN Q6HR [facility] Stop: 02/14/17 17:59 Last Admin: 12/18/16 13:05 Dose: 2 ml Albuterol/Ipratropium (Duoneb Neb) 3 ml HHN Q6HRT [facility] Stop: 02/14/17 18:59 Last Admin: 12/18/16 13:04 Dose: 3 ml Artificial Tears (Artificial Tears Ophth Soln) 1 drop EACH EYE Q6H PRN PRN Reason: dry eyes Stop: 01/15/17 14:56 Bisacodyl (Dulcolax 10 Mg Supp) 10 mg RC DAILY PRN PRN Reason: if MOM ineffective Stop: 02/14/17 14:56 Budesonide (Pulmicort) 0.5 mg HHN Q12HRT [facility] Stop: 02/14/17 18:59 Last Admin: 12/18/16 07:07 Dose: 0.5 mg Chlorhexidine Gluconate (Peridex) 15 ml MM Q12HR [facility] Stop: 02/14/17 20:59 Last Admin: 12/18/16 08:59 Dose: 15 ml Chlorpromazine (Thorazine) 25 mg IM Q8H PRN; Protocol PRN Reason: Hiccups Stop: 02/14/17 16:59 Clonidine HCl (Catapres) 0.1 mg PO Q6H PRN PRN Reason: SBP>160 Stop: 02/14/17 15:14 Docusate Sodium (Colace) 100 mg PO BID [facility] Stop: 02/14/17 16:59 Last Admin: 12/18/16 08:46 Dose: 100 mg Epoetin Dennis (Epogen) 10,000 units SUBQ QMON [facility] Stop: 02/16/17 14:59 Piperacillin Sod/Tazobactam (Sod 3.375 gm/ Sodium Chloride) 50 mls @ 100 mls/ hr IV Q8H [facility] Stop: 02/14/17 22:59 Last Admin: 12/18/16 06:53 Dose: 100 mls/hr Pantoprazole Sodium 80 mg/ (Sodium Chloride) 100 mls @ 10 mls/hr IV Q24HR [facility] Stop: 02/14/17 17:44 Last Admin: 12/17/16 22:58 Dose: 10 mls/hr Dextrose/Sodium Chloride (D5-0.9%Ns) 1,000 mls @ 80 mls/hr IV .[id number] [facility] Stop: 02/14/17 21:38 Last Infusion: 12/18/16 05:43 Dose: 80 mls/hr Insulin Aspart (Novolog Insulin Sliding Scale) 0 units SUBQ ACHS [facility] PRN Reason: Protocol Stop: 02/14/17 16:29 Last Admin: 12/18/16 06:54 Dose: 2 units Insulin Human NPH (Novolin N) 10 units SUBQ Q12HR [facility] Stop: 02/14/17 20:59 Last Admin: 12/18/16 08:51 Dose: 10 units Lactobacillus Rhamnosus (Culturelle) 1 each GT Q12HR [facility] Stop: 02/14/17 20:59 Last Admin: 12/18/16 08:46 Dose: 1 each Levothyroxine Sodium (Synthroid) 0.05 mg GT QDAC [facility] Stop: 02/15/17 07:29 Last Admin: 12/18/16 07:30 Dose: 0.05 mg Magnesium Hydroxide (Milk Of Magnesia) 30 ml GT HS PRN PRN Reason: Constipation Stop: 02/14/17 14:56 Metoclopramide HCl (Reglan) 10 mg IVP Q8HR [facility] Stop: 02/14/17 20:59 Last Admin: 12/18/16 06:53 Dose: 10 mg Mineral Oil (Mineral Oil 30 Ml) 30 ml GT QID [facility] Stop: 02/15/17 16:59 Last Admin: 12/18/16 08:47 Dose: 30 ml Multivitamins/Vitamin C (Theragran) 1 tab GT DAILY [facility] Stop: 02/15/17 08:59 Last Admin: 12/18/16 08:47 Dose: 1 tab Mupirocin (Bactroban Oint) 1 appl NS BID [facility] Stop: 12/22/16 09:01 Last Admin: 12/18/16 08:50 Dose: 1 appl Scopolamine (Transderm Scop Patch) 1 patch TD Q72H [facility] Stop: 02/14/17 17:59 Sodium Phosphate (Fleet Enema) 135 ml RC Q2D PRN PRN Reason: dulcolax ineffective Stop: 02/14/17 14:56 Sucralfate (Carafate) 1 gm GT QID [facility] Stop: 02/14/17 16:59 Last Admin: 12/18/16 08:47 Dose: 1 gm Theophylline (Prieto-Dur) 200 mg GT Q12HR [facility] Stop: 02/14/17 20:59 Last Admin: 12/18/16 08:47 Dose: 200 mg General: Alert, No acute distress HEENT: Atraumatic, Mucous membr. moist/pink Neck: Supple, +2 carotid pulse wo bruit, Other (T piece) Cardiovascular: Regular rate, Normal S1, Normal S2 Lungs: Other (few rhonchi) Abdomen: Bowel sounds, Soft Extremities: no Edema Neurological: Sensation intact, Other (decerebrate) Skin: no Rash - Procedures Procedures: Procedures Procedure Code Date BLOOD TRANSFUSION SERVICE 72129 02/09/16 EGD DIAGNOSTIC BRUSH WASH 93100 02/09/16 INSPECTION OF UPPER INTESTINAL TRACT, ENDO [id number] 02/09/16 TRANSFUSE NONAUT RED BLOOD CELLS IN PERIPH VEIN, PERC 32619D9 02/09/16 Assessment/Plan - Problem List Patient Problems: All Active Problems VOMITING DARK BROWN EMESIS (Acute) Anemia (Acute) D64.9 Anoxic brain damage, not elsewhere classified (Acute) G93.1 Chronic respiratory failure (Acute) J96.10 Hypo-osmolality and hyponatremia (Acute) E87.1 Tracheostomy status (Acute) Z93.0 - Assessment Assessment: jemima on ckd coffee ground vomitus possible esophagitis/ gastritis/ PUD/ varices resp failure on T piece anoxic enceph type 2 dm HTN CAD s/p CABG anemia of ckd DJD hypothyroid mod malnutrition UCx UTI func quadriplegia - Plan Plan: BUN down to 36, CR. of 1.4 possible baseline FE Na 1.47% suggestive of intrinsic renal ds continue D5NS @ 80 ml/hr hgb/hct down to 8.8/26.4 possible hemodilution or anemia f/u electrolytes/cbc
[2016-12-18] MEDS: Pantoprazole 80 MG in Sodium Chloride 0.9% 100 ML IV SCH (17:07)
--- NOTE | 2016-12-18 17:13 | Cardiology ---
Patient of Dr. Andrade. M-MODE ECHOCARDIOGRAM: Mitral valve, anterior leaflet of mitral valve shows normal excursion, EF velocity. Posterior leaflet of mitral valve shows normal excursion. Left ventricular posterior wall shows increased thickness, normal excursion. Interventricular septum shows increased thickness, normal excursion, hypertrophy of the left ventricle, ejection fraction 59%. Left atrium normal. Aortic root shows normal dimension, normal excursion of aortic leaflets. CONCLUSION: Hypertrophy of the left ventricle, ejection fraction 59%. 2D ECHO: Long axis view showed normal sized left ventricle with hypertrophy of the left ventricle. Left atrium normal. Aortic root shows normal dimension, normal excursion of aortic leaflets. Short axis view mitral valve normal. Short axis view of aortic valve normal. Apical four chamber view showed normal sized left ventricle with hypertrophy of the left ventricle. Left atrium normal. Right ventricular cavity, right atrium normal. No pericardial effusion. CONCLUSION: Hypertrophy of the left ventricle, ejection fraction 59%. Doppler study shows mild mitral regurgitation and aortic regurgitation. Pressure half time for aortic regurgitation is 1356. [facility]# [id number]
[2016-12-18] MEDS ORDERED: Sodium Phosphate 20 MMOLE in Sodium Chloride 0.9% 250 ML IV ONE (17:30)
[2016-12-18 21:56] LABS: TOTAL PROTEIN 24 HR URINE 2164.5 mg/24 hr (0-165)
[2016-12-19] MEDS: Albuterol/Ipratropium Neb 3 ML AERS HHN SCH ×4 (00:57→18:30)
[2016-12-19] MEDS: Pantoprazole 80 MG in Sodium Chloride 0.9% 100 ML IV SCH ×3 (05:07→23:30)
[2016-12-19 05:24] LABS: % BASOPHILS 4.5 % (0.0-2.0); % EOSINOPHILS 4.9 % (0.0-5.0); % LYMPHOCYTES 20.4 % (20.0-50.0); % MONOCYTES 8.6 % (2.0-10.0); % NEUTROPHILS 61.6 % (40.0-80.0); HEMOGLOBIN 10.1 gm/dL (12.6-17.4); MEAN CELL VOLUME 93.8 fl (80-99); MEAN CORPUSCULAR HEMOGLOBIN 30.9 pg (27.0-31.0); MEAN CORPUSCULAR HGB CONC 32.9 pg (28.0-36.0); MEAN PLATELET VOLUME 9.6 fl; RED BLOOD COUNT 3.27 Mil/cmm (3.80-5.80); RED CELL DISTRIBUTION WIDTH 13.3 % (11.5-20.0); WHITE BLOOD COUNT 9.7 Th/cmm (4.8-10.8)
[2016-12-19 05:31] LABS: INR 1.04 (0.5-1.4); PROTHROMBIN TIME (TEST) 10.3 SECONDS (9.5-11.5)
[2016-12-19 05:36] LABS: ANION GAP 10.5 (7.0-16.0); BUN - UREA NITROGEN 24 mg/dL (7-25); BUN/CREATININE RATIO 18.5; CALCIUM SERUM 9.4 mg/dL (8.6-10.3); CARBON DIOXIDE 25.9 mEq/L (21.0-31.0); CHLORIDE 108 mEq/L (98-107); CREATININE - SERUM 1.3 mg/dL (0.7-1.3); GLUCOSE 157 mg/dL (70-105); POTASSIUM SERUM 4.4 mEq/L (3.5-5.1); SODIUM SERUM 140 mEq/L (136-145)
[2016-12-19 05:39] LABS: HEMATOCRIT 30.6 % (39.0-49.0); PLATELET COUNT 155 Th/cmm (150-400)
[2016-12-19] MEDS: Metoclopramide 5 mg/mL 2mL Vial IVP SCH ×3 (06:26→20:16)
[2016-12-19] MEDS: INSULIN ASPART SLIDING SCALE 100 UNITS/ML UNIT SUBQ SCH ×4 (06:44→20:15)
[2016-12-19] MEDS: Levothyroxine 0.05 Mg Tab GT SCH (06:46)
[2016-12-19] MEDS: Budesonide 0.5 Mg/2 mL Ud HHN SCH (07:09)
[2016-12-19] MEDS: Lactobacillus Rhamnosus 10 Billion CFU Capsule GT SCH ×2 (09:00→20:16)
[2016-12-19] MEDS: Multivitamin Tab GT SCH (09:00)
[2016-12-19] MEDS: Theophylline 80 mg/15 mL UDC GT SCH ×2 (09:00→20:16)
[2016-12-19] MEDS: Chlorhexidine Gluconate 0.12% 480mL Bottle MM SCH ×2 (09:00→20:15)
[2016-12-19] MEDS: INSULIN HUMAN ISOPHANE (NPH) 100 UNITS/ML SUBQ SCH ×2 (09:00→20:15)
--- NOTE | 2016-12-19 12:29 | Internal Medicine Prog Note ---
Internal Medicine Subjective - Subjective Service Date: 12/19/16 (urine culture + aerococcus urinae ) Patient seen and examined:: with staff Patient is:: awake Per staff patient is:: no adverse event Internal Medicine Objective - Results Result Diagrams: 12/19/16 04:53 12/19/16 04:53 Recent Labs: Laboratory Last Values WBC 9.7 Th/cmm (4.8-10.8) 12/19/16 04:53 RBC 3.27 Mil/cmm (3.80-5.80) L 12/19/16 04:53 Hgb 10.1 gm/dL (12.6-17.4) L 12/19/16 04:53 Hct 30.6 % (39.0-49.0) L D 12/19/16 04:53 MCV 93.8 fl (80-99) 12/19/16 04:53 MCH 30.9 pg (27.0-31.0) 12/19/16 04:53 MCHC Differential 32.9 pg (28.0-36.0) 12/19/16 04:53 RDW 13.3 % (11.5-20.0) 12/19/16 04:53 Plt Count 155 Th/cmm (150-400) D 12/19/16 04:53 MPV 9.6 fl 12/19/16 04:53 Neutrophils % 61.6 % (40.0-80.0) 12/19/16 04:53 Lymphocytes % 20.4 % (20.0-50.0) 12/19/16 04:53 Monocytes % 8.6 % (2.0-10.0) 12/19/16 04:53 Eosinophils % 4.9 % (0.0-5.0) 12/19/16 04:53 Basophils % 4.5 % (0.0-2.0) H 12/19/16 04:53 Eos Smear Source URINE 12/17/16 21:00 Eos Smear Total Cells NONE SEEN (NONE SEEN) 12/17/16 21:00 PT 10.3 SECONDS (9.5-11.5) 12/19/16 04:53 INR 1.04 (0.5-1.4) 12/19/16 04:53 PTT (Actin FS) 25.6 SECONDS (26.0-38.0) L 12/16/16 11:40 Sodium 140 mEq/L (136-145) 12/19/16 04:53 Potassium 4.4 mEq/L (3.5-5.1) 12/19/16 04:53 Chloride 108 mEq/L (98-107) H 12/19/16 04:53 Carbon Dioxide 25.9 mEq/L (21.0-31.0) 12/19/16 04:53 Anion Gap 10.5 (7.0-16.0) 12/19/16 04:53 BUN 24 mg/dL (7-25) 12/19/16 04:53 Creatinine 1.3 mg/dL (0.7-1.3) 12/19/16 04:53 Est GFR ( Amer) TNP 12/19/16 04:53 Est GFR (Non-Af Amer) TNP 12/19/16 04:53 BUN/Creatinine Ratio 18.5 12/19/16 04:53 Glucose 157 mg/dL (70-105) H 12/19/16 04:53 POC Glucose 166 MG/DL (70 - 105) H 12/19/16 11:33 Whole Bld Lactic Acid 1.01 mmol/L (0.60-2.00) 12/16/16 11:40 Calcium 9.4 mg/dL (8.6-10.3) 12/19/16 04:53 Phosphorus 2.3 mg/dL (2.5-5.0) L 12/18/16 04:50 Magnesium 2.3 mg/dL (1.9-2.7) 12/18/16 04:50 Total Bilirubin 0.4 mg/dL (0.3-1.0) 12/18/16 04:50 AST 15 U/L (13-39) 12/18/16 04:50 ALT 13 U/L (7-52) 12/18/16 04:50 Alkaline Phosphatase 51 U/L (34-104) 12/18/16 04:50 Creatine Kinase 122 U/L (30-223) 12/16/16 11:40 C-Reactive Protein 4.20 mg/dL (0.0-0.9) H 12/17/16 04:28 B-Natriuretic Peptide 163.0 pg/mL (5.0-100.0) H 12/18/16 04:50 Total Protein 7.0 gm/dL (6.0-8.3) 12/18/16 04:50 Albumin 3.2 gm/dL (4.2-5.5) L 12/18/16 04:50 Globulin 3.8 gm/dL 12/18/16 04:50 Albumin/Globulin Ratio 0.8 (1.0-1.8) L 12/18/16 04:50 Triglycerides 109 mg/dL (<150) 12/18/16 04:50 Cholesterol 101 mg/dL (<200) 12/18/16 04:50 LDL Cholesterol Direct 51 mg/dL (75-193) L 12/18/16 04:50 HDL Cholesterol 31 mg/dL (23-92) 12/18/16 04:50 Amylase 108 U/L (29-103) H 12/16/16 11:40 Lipase 21 U/L (11-82) 12/16/16 11:40 Urine Source [place] 12/16/16 12:25 Urine Color YELLOW 12/16/16 12:25 Urine Clarity CLOUDY (CLEAR) 12/16/16 12:25 Urine pH 6.5 12/16/16 12:25 Ur Specific [place] 1.020 (1.005-1.030) 12/16/16 12:25 Urine Protein 100 mg/dL (NEGATIVE) H 12/16/16 12:25 Urine Glucose (UA) NEGATIVE mg/dL (NEGATIVE) 12/16/16 12:25 Urine Ketones NEGATIVE mg/dL (NEGATIVE) 12/16/16 12:25 Urine Blood MODERATE (NEGATIVE) H 12/16/16 12:25 Urine Nitrate NEGATIVE (NEGATIVE) 12/16/16 12:25 Urine Bilirubin SMALL (NEGATIVE) H 12/16/16 12:25 Urine Urobilinogen 0.2 E.U./dL (0.2 - 1.0) 12/16/16 12:25 Ur Leukocyte Esterase LARGE (NEGATIVE) H 12/16/16 12:25 Urine RBC 6-8 /hpf (0-5) 12/16/16 12:25 Urine WBC 50-100 /hpf (0-5) H 12/16/16 12:25 Ur Epithelial Cells OCCASIONAL /lpf (FEW) 12/16/16 12:25 Urine Bacteria MANY /hpf (NONE SEEN) 12/16/16 12:25 U Random Total Protein 117.0 mg/dL 12/18/16 21:00 Ur Random Sodium 87 mmol/L 12/17/16 21:00 Urine Collection Time 24 hours 12/18/16 21:00 Urine Total Volume 1850 ml 12/18/16 21:00 Urine Creatinine 60.0 mg/dl (39.0-259.0) 12/17/16 21:00 U Tot Protein 24h, Calc 2164.5 mg/24 hr (0-165) H 12/18/16 21:00 Gastric Occult Blood POSITIVE 12/16/16 11:30 Stool Occult Blood NEGATIVE (NEGATIVE) 12/17/16 06:20 Theophylline 4.6 ug/mL (10.0-20.0) L 12/16/16 11:40 Blood Type O POSITIVE 12/16/16 11:40 Antibody Screen NEGATIVE 12/16/16 11:40 - Physical Exam Vitals and I&O: Vital Signs Temp 98.8 F 12/19/16 08:00 Pulse 75 12/19/16 12:04 Resp 31 12/19/16 12:04 BP 145/71 12/19/16 08:00 Pulse Ox 100 12/19/16 12:04 Intake & Output 12/18/16 12/19/16 12/19/16 18:59 06:59 18:59 Intake Total 1106.667 180 Output Total 1250 1110 Balance -143.333 -930 Weight (lbs) 180 lb 6.4 oz 206 lb 6.4 oz Intake: Intake, IV Amount 986.667 150 D5-0.9%Ns 1,000 ml @ 80 786.667 mls/hr IV .[id number] [facility] Rx #:[id number] Pantoprazole 80 mg In 100 100 Sodium Chloride 0.9% 100 ml @ 10 mls/hr IV Q24HR [facility] Rx#:[id number] Piperacillin Sodium/ 100 50 Tazobact 3.375 gm In Sodium Chloride 0.9% 50 ml @ 100 mls/hr IV Q8H [facility] Rx#:[id number] Tube Feeding 30 Other 120 Output: Urine 1250 1110 Other: # Bowel Movements 0 Active Medications: Current Medications Acetaminophen (Tylenol 650mg/20.3ml Suspension) 650 mg GT Q4H PRN PRN Reason: Fever >101 Stop: 02/14/17 15:12 Acetylcysteine (Mucomyst 10%) 2 ml HHN Q6HR [facility] Stop: 02/14/17 17:59 Last Admin: 12/19/16 12:04 Dose: 2 ml Albuterol/Ipratropium (Duoneb Neb) 3 ml HHN Q6HRT [facility] Stop: 02/14/17 18:59 Last Admin: 12/19/16 12:04 Dose: 3 ml Artificial Tears (Artificial Tears Ophth Soln) 1 drop EACH EYE Q6H PRN PRN Reason: dry eyes Stop: 01/15/17 14:56 Bisacodyl (Dulcolax 10 Mg Supp) 10 mg RC DAILY PRN PRN Reason: if MOM ineffective Stop: 02/14/17 14:56 Budesonide (Pulmicort) 0.5 mg HHN Q12HRT [facility] Stop: 02/14/17 18:59 Last Admin: 12/19/16 07:09 Dose: 0.5 mg Chlorhexidine Gluconate (Peridex) 15 ml MM Q12HR [facility] Stop: 02/14/17 20:59 Last Admin: 12/19/16 09:00 Dose: 15 ml Chlorpromazine (Thorazine) 25 mg IM Q8H PRN; Protocol PRN Reason: Hiccups Stop: 02/14/17 16:59 Clonidine HCl (Catapres) 0.1 mg PO Q6H PRN PRN Reason: SBP>160 Stop: 02/14/17 15:14 Docusate Sodium (Colace) 100 mg PO BID [facility] Stop: 02/14/17 16:59 Last Admin: 12/19/16 09:00 Dose: Not Given Epoetin Dennis (Epogen) 10,000 units SUBQ QMON [facility] Stop: 02/16/17 14:59 Last Admin: 12/18/16 14:18 Dose: 10,000 units Piperacillin Sod/Tazobactam (Sod 3.375 gm/ Sodium Chloride) 50 mls @ 100 mls/ hr IV Q8H [facility] Stop: 02/14/17 22:59 Last Admin: 12/19/16 06:23 Dose: 100 mls/hr Pantoprazole Sodium 80 mg/ (Sodium Chloride) 100 mls @ 10 mls/hr IV Q24HR [facility] Stop: 02/14/17 17:44 Last Admin: 12/19/16 05:07 Dose: 10 mls/hr Dextrose/Sodium Chloride (D5-0.9%Ns) 1,000 mls @ 80 mls/hr IV .[id number] [facility] Stop: 02/14/17 21:38 Last Admin: 12/18/16 17:02 Dose: 80 mls/hr Insulin Aspart (Novolog Insulin Sliding Scale) 0 units SUBQ ACHS [facility] PRN Reason: Protocol Stop: 02/14/17 16:29 Last Admin: 12/19/16 11:37 Dose: Not Given Insulin Human NPH (Novolin N) 10 units SUBQ Q12HR [facility] Stop: 02/14/17 20:59 Last Admin: 12/19/16 09:00 Dose: Not Given Lactobacillus Rhamnosus (Culturelle) 1 each GT Q12HR [facility] Stop: 02/14/17 20:59 Last Admin: 12/19/16 09:00 Dose: Not Given Levothyroxine Sodium (Synthroid) 0.05 mg GT QDAC [facility] Stop: 02/15/17 07:29 Last Admin: 12/19/16 06:46 Dose: Not Given Magnesium Hydroxide (Milk Of Magnesia) 30 ml GT HS PRN PRN Reason: Constipation Stop: 02/14/17 14:56 Metoclopramide HCl (Reglan) 10 mg IVP Q8HR [facility] Stop: 02/14/17 20:59 Last Admin: 12/19/16 06:26 Dose: 10 mg Mineral Oil (Mineral Oil 30 Ml) 30 ml GT QID [facility] Stop: 02/15/17 16:59 Last Admin: 12/19/16 09:00 Dose: Not Given Multivitamins/Vitamin C (Theragran) 1 tab GT DAILY [facility] Stop: 02/15/17 08:59 Last Admin: 12/19/16 09:00 Dose: Not Given Mupirocin (Bactroban Oint) 1 appl NS BID [facility] Stop: 12/22/16 09:01 Last Admin: 12/19/16 09:00 Dose: 1 appl Scopolamine (Transderm Scop Patch) 1 patch TD Q72H [facility] Stop: 02/14/17 17:59 Sodium Phosphate (Fleet Enema) 135 ml RC Q2D PRN PRN Reason: dulcolax ineffective Stop: 02/14/17 14:56 Sucralfate (Carafate) 1 gm GT QID [facility] Stop: 02/14/17 16:59 Last Admin: 12/19/16 09:00 Dose: Not Given Theophylline (Prieto-Dur) 200 mg GT Q12HR [facility] Stop: 02/14/17 20:59 Last Admin: 12/19/16 09:00 Dose: Not Given General: alert HEENT: NC/AT, PERRLA Neck: Supple Lungs: CTAB Cardiovascular: RRR, Normal S1, Normal S2, without murmur Abdomen: soft non-tender Extremities: clear - Procedures Procedures: Procedures Procedure Code Date BLOOD TRANSFUSION SERVICE 13915 02/09/16 EGD DIAGNOSTIC BRUSH WASH 79822 02/09/16 INSPECTION OF UPPER INTESTINAL TRACT, ENDO [id number] 02/09/16 TRANSFUSE NONAUT RED BLOOD CELLS IN PERIPH VEIN, PERC 97329C6 02/09/16 Internal Medicine Assmt/Plan - Assessment Assessment: upper GI bleed acute uti , aerococcus urinae acute respiratory failure dehydration htn dm-2 - Plan Plan: egd today will add vanco per pharmacy to dose ivabx ivf for hydration npo montior for fever
[2016-12-19] MEDS: Vancomycin HCl 1.5 GM in Sodium Chloride 0.9% 500 ML IV SCH (13:37)
[2016-12-19] MEDS: D5-0.9%NS 1,000 ML IV SCH (14:02)
[2016-12-19] MEDS ORDERED: Lactated Ringer 1,000 ML IV SCH (16:45)
--- NOTE | 2016-12-19 18:11 | General Progress Note ---
Subjective - Review of Systems Service Date: 12/19/16 Subjective: eyes open, on T piece, comfortable, no further N/V Objective - Results Result Diagrams: 12/19/16 04:53 12/19/16 04:53 Recent Labs: Laboratory Last Values WBC 9.7 Th/cmm (4.8-10.8) 12/19/16 04:53 RBC 3.27 Mil/cmm (3.80-5.80) L 12/19/16 04:53 Hgb 10.1 gm/dL (12.6-17.4) L 12/19/16 04:53 Hct 30.6 % (39.0-49.0) L D 12/19/16 04:53 MCV 93.8 fl (80-99) 12/19/16 04:53 MCH 30.9 pg (27.0-31.0) 12/19/16 04:53 MCHC Differential 32.9 pg (28.0-36.0) 12/19/16 04:53 RDW 13.3 % (11.5-20.0) 12/19/16 04:53 Plt Count 155 Th/cmm (150-400) D 12/19/16 04:53 MPV 9.6 fl 12/19/16 04:53 Neutrophils % 61.6 % (40.0-80.0) 12/19/16 04:53 Lymphocytes % 20.4 % (20.0-50.0) 12/19/16 04:53 Monocytes % 8.6 % (2.0-10.0) 12/19/16 04:53 Eosinophils % 4.9 % (0.0-5.0) 12/19/16 04:53 Basophils % 4.5 % (0.0-2.0) H 12/19/16 04:53 Eos Smear Source URINE 12/17/16 21:00 Eos Smear Total Cells NONE SEEN (NONE SEEN) 12/17/16 21:00 PT 10.3 SECONDS (9.5-11.5) 12/19/16 04:53 INR 1.04 (0.5-1.4) 12/19/16 04:53 PTT (Actin FS) 25.6 SECONDS (26.0-38.0) L 12/16/16 11:40 Sodium 140 mEq/L (136-145) 12/19/16 04:53 Potassium 4.4 mEq/L (3.5-5.1) 12/19/16 04:53 Chloride 108 mEq/L (98-107) H 12/19/16 04:53 Carbon Dioxide 25.9 mEq/L (21.0-31.0) 12/19/16 04:53 Anion Gap 10.5 (7.0-16.0) 12/19/16 04:53 BUN 24 mg/dL (7-25) 12/19/16 04:53 Creatinine 1.3 mg/dL (0.7-1.3) 12/19/16 04:53 Est GFR ( Amer) TNP 12/19/16 04:53 Est GFR (Non-Af Amer) TNP 12/19/16 04:53 BUN/Creatinine Ratio 18.5 12/19/16 04:53 Glucose 157 mg/dL (70-105) H 12/19/16 04:53 POC Glucose 141 MG/DL (70 - 105) H 12/19/16 16:57 Whole Bld Lactic Acid 1.01 mmol/L (0.60-2.00) 12/16/16 11:40 Calcium 9.4 mg/dL (8.6-10.3) 12/19/16 04:53 Phosphorus 2.3 mg/dL (2.5-5.0) L 12/18/16 04:50 Magnesium 2.3 mg/dL (1.9-2.7) 12/18/16 04:50 Total Bilirubin 0.4 mg/dL (0.3-1.0) 12/18/16 04:50 AST 15 U/L (13-39) 12/18/16 04:50 ALT 13 U/L (7-52) 12/18/16 04:50 Alkaline Phosphatase 51 U/L (34-104) 12/18/16 04:50 Creatine Kinase 122 U/L (30-223) 12/16/16 11:40 C-Reactive Protein 4.20 mg/dL (0.0-0.9) H 12/17/16 04:28 B-Natriuretic Peptide 163.0 pg/mL (5.0-100.0) H 12/18/16 04:50 Total Protein 7.0 gm/dL (6.0-8.3) 12/18/16 04:50 Albumin 3.2 gm/dL (4.2-5.5) L 12/18/16 04:50 Globulin 3.8 gm/dL 12/18/16 04:50 Albumin/Globulin Ratio 0.8 (1.0-1.8) L 12/18/16 04:50 Triglycerides 109 mg/dL (<150) 12/18/16 04:50 Cholesterol 101 mg/dL (<200) 12/18/16 04:50 LDL Cholesterol Direct 51 mg/dL (75-193) L 12/18/16 04:50 HDL Cholesterol 31 mg/dL (23-92) 12/18/16 04:50 Amylase 108 U/L (29-103) H 12/16/16 11:40 Lipase 21 U/L (11-82) 12/16/16 11:40 Urine Source [place] 12/16/16 12:25 Urine Color YELLOW 12/16/16 12:25 Urine Clarity CLOUDY (CLEAR) 12/16/16 12:25 Urine pH 6.5 12/16/16 12:25 Ur Specific [place] 1.020 (1.005-1.030) 12/16/16 12:25 Urine Protein 100 mg/dL (NEGATIVE) H 12/16/16 12:25 Urine Glucose (UA) NEGATIVE mg/dL (NEGATIVE) 12/16/16 12:25 Urine Ketones NEGATIVE mg/dL (NEGATIVE) 12/16/16 12:25 Urine Blood MODERATE (NEGATIVE) H 12/16/16 12:25 Urine Nitrate NEGATIVE (NEGATIVE) 12/16/16 12:25 Urine Bilirubin SMALL (NEGATIVE) H 12/16/16 12:25 Urine Urobilinogen 0.2 E.U./dL (0.2 - 1.0) 12/16/16 12:25 Ur Leukocyte Esterase LARGE (NEGATIVE) H 12/16/16 12:25 Urine RBC 6-8 /hpf (0-5) 12/16/16 12:25 Urine WBC 50-100 /hpf (0-5) H 12/16/16 12:25 Ur Epithelial Cells OCCASIONAL /lpf (FEW) 12/16/16 12:25 Urine Bacteria MANY /hpf (NONE SEEN) 12/16/16 12:25 U Random Total Protein 117.0 mg/dL 12/18/16 21:00 Ur Random Sodium 87 mmol/L 12/17/16 21:00 Urine Collection Time 24 hours 12/18/16 21:00 Urine Total Volume 1850 ml 12/18/16 21:00 Urine Creatinine 60.0 mg/dl (39.0-259.0) 12/17/16 21:00 U Tot Protein 24h, Calc 2164.5 mg/24 hr (0-165) H 12/18/16 21:00 Gastric Occult Blood POSITIVE 12/16/16 11:30 Stool Occult Blood NEGATIVE (NEGATIVE) 12/17/16 06:20 Theophylline 4.6 ug/mL (10.0-20.0) L 12/16/16 11:40 Blood Type O POSITIVE 12/16/16 11:40 Antibody Screen NEGATIVE 12/16/16 11:40 - Physical Exam Vitals and I&O: Vital Signs Temp 98.6 F 12/19/16 16:00 Pulse 78 12/19/16 16:00 Resp 23 12/19/16 16:00 BP 145/69 12/19/16 16:00 Pulse Ox 99 12/19/16 16:00 Intake & Output 12/18/16 12/19/16 12/19/16 18:59 06:59 18:59 Intake Total 2836.957 8013 550 Output Total 1250 1110 Balance -143.333 120 550 Weight (lbs) 81.828 kg 93.621 kg Intake: Intake, IV Amount 517.693 0759 550 D5-0.9%Ns 1,000 ml @ 80 768.752 6595 mls/hr IV .[id number] [facility] Rx #:[id number] Pantoprazole 80 mg In 100 100 Sodium Chloride 0.9% 100 ml @ 10 mls/hr IV Q24HR [facility] Rx#:[id number] Piperacillin Sodium/ 100 100 50 Tazobact 3.375 gm In Sodium Chloride 0.9% 50 ml @ 100 mls/hr IV Q8H [facility] Rx#:[id number] Vancomycin HCl 1.5 gm In 500 Sodium Chloride 0.9% 500 ml @ 250 mls/hr IV DAILY [facility] Rx#:[id number] Tube Feeding 30 Other 120 Output: Urine 1250 1110 Other: # Bowel Movements 0 Active Medications: Current Medications Acetaminophen (Tylenol 650mg/20.3ml Suspension) 650 mg GT Q4H PRN PRN Reason: Fever >101 Stop: 02/14/17 15:12 Acetylcysteine (Mucomyst 10%) 2 ml HHN Q6HR [facility] Stop: 02/14/17 17:59 Last Admin: 12/19/16 12:04 Dose: 2 ml Albuterol/Ipratropium (Duoneb Neb) 3 ml HHN Q6HRT [facility] Stop: 02/14/17 18:59 Last Admin: 12/19/16 12:04 Dose: 3 ml Artificial Tears (Artificial Tears Ophth Soln) 1 drop EACH EYE Q6H PRN PRN Reason: dry eyes Stop: 01/15/17 14:56 Bisacodyl (Dulcolax 10 Mg Supp) 10 mg RC DAILY PRN PRN Reason: if MOM ineffective Stop: 02/14/17 14:56 Budesonide (Pulmicort) 0.5 mg HHN Q12HRT [facility] Stop: 02/14/17 18:59 Last Admin: 12/19/16 07:09 Dose: 0.5 mg Chlorhexidine Gluconate (Peridex) 15 ml MM Q12HR [facility] Stop: 02/14/17 20:59 Last Admin: 12/19/16 09:00 Dose: 15 ml Chlorpromazine (Thorazine) 25 mg IM Q8H PRN; Protocol PRN Reason: Hiccups Stop: 02/14/17 16:59 Clonidine HCl (Catapres) 0.1 mg PO Q6H PRN PRN Reason: SBP>160 Stop: 02/14/17 15:14 Docusate Sodium (Colace) 100 mg PO BID [facility] Stop: 02/14/17 16:59 Last Admin: 12/19/16 09:00 Dose: Not Given Epoetin Dennis (Epogen) 10,000 units SUBQ QMON [facility] Stop: 02/16/17 14:59 Last Admin: 12/18/16 14:18 Dose: 10,000 units Piperacillin Sod/Tazobactam (Sod 3.375 gm/ Sodium Chloride) 50 mls @ 100 mls/ hr IV Q8H [facility] Stop: 02/14/17 22:59 Last Infusion: 12/19/16 16:20 Dose: Infused Dextrose/Sodium Chloride (D5-0.9%Ns) 1,000 mls @ 80 mls/hr IV .[id number] [facility] Stop: 02/14/17 21:38 Last Admin: 12/19/16 14:02 Dose: 80 mls/hr Vancomycin HCl 1.5 gm/ Sodium (Chloride) 500 mls @ 250 mls/hr IV DAILY [facility] Stop: 02/17/17 12:59 Last Infusion: 12/19/16 17:00 Dose: Infused Pantoprazole Sodium 80 mg/ (Sodium Chloride) 100 mls @ 10 mls/hr IV Q10H [facility] Stop: 02/17/17 14:59 Last Admin: 12/19/16 14:03 Dose: 10 mls/hr Insulin Aspart (Novolog Insulin Sliding Scale) 0 units SUBQ ACHS [facility] PRN Reason: Protocol Stop: 02/14/17 16:29 Last Admin: 12/19/16 17:23 Dose: Not Given Insulin Human NPH (Novolin N) 10 units SUBQ Q12HR [facility] Stop: 02/14/17 20:59 Last Admin: 12/19/16 09:00 Dose: Not Given Lactobacillus Rhamnosus (Culturelle) 1 each GT Q12HR [facility] Stop: 02/14/17 20:59 Last Admin: 12/19/16 09:00 Dose: Not Given Levothyroxine Sodium (Synthroid) 0.05 mg GT QDAC [facility] Stop: 02/15/17 07:29 Last Admin: 12/19/16 06:46 Dose: Not Given Magnesium Hydroxide (Milk Of Magnesia) 30 ml GT HS PRN PRN Reason: Constipation Stop: 02/14/17 14:56 Metoclopramide HCl (Reglan) 10 mg IVP Q8HR [facility] Stop: 02/14/17 20:59 Last Admin: 12/19/16 13:00 Dose: 10 mg Mineral Oil (Mineral Oil 30 Ml) 30 ml GT QID [facility] Stop: 02/15/17 16:59 Last Admin: 12/19/16 15:01 Dose: Not Given Miscellaneous (Vancomycin Iv Per Pharmacy) 1 ea MC PRN PRN PRN Reason: PROTOCOL Stop: 02/17/17 12:28 Multivitamins/Vitamin C (Theragran) 1 tab GT DAILY [facility] Stop: 02/15/17 08:59 Last Admin: 12/19/16 09:00 Dose: Not Given Mupirocin (Bactroban Oint) 1 appl NS BID [facility] Stop: 12/22/16 09:01 Last Admin: 12/19/16 17:34 Dose: 1 appl Scopolamine (Transderm Scop Patch) 1 patch TD Q72H [facility] Stop: 02/14/17 17:59 Sodium Phosphate (Fleet Enema) 135 ml RC Q2D PRN PRN Reason: dulcolax ineffective Stop: 02/14/17 14:56 Sucralfate (Carafate) 1 gm GT QID [facility] Stop: 02/14/17 16:59 Last Admin: 12/19/16 13:00 Dose: Not Given Theophylline (Prieto-Dur) 200 mg GT Q12HR [facility] Stop: 02/14/17 20:59 Last Admin: 12/19/16 09:00 Dose: Not Given General: Alert, No acute distress HEENT: Atraumatic, EOMI, Mucous membr. moist/pink Neck: Supple, +2 carotid pulse wo bruit Cardiovascular: Regular rate, Normal S1, Normal S2 Lungs: Other (few rhonchi) Abdomen: Bowel sounds, Soft Extremities: no Edema Neurological: Sensation intact Skin: no Rash - Procedures Procedures: Procedures Procedure Code Date BLOOD TRANSFUSION SERVICE 45837 02/09/16 EGD DIAGNOSTIC BRUSH WASH 86634 02/09/16 INSPECTION OF UPPER INTESTINAL TRACT, ENDO [id number] 02/09/16 TRANSFUSE NONAUT RED BLOOD CELLS IN PERIPH VEIN, PERC [id number] 02/09/16 Assessment/Plan - Problem List Patient Problems: All Active Problems VOMITING DARK BROWN EMESIS (Acute) Anemia (Acute) D64.9 Anoxic brain damage, not elsewhere classified (Acute) G93.1 Chronic respiratory failure (Acute) J96.10 Hypo-osmolality and hyponatremia (Acute) E87.1 Tracheostomy status (Acute) Z93.0 - Assessment Assessment: jemima on ckd coffee ground vomitus possible esophagitis/ gastritis/ PUD/ varices resp failure on T piece anoxic enceph type 2 dm HTN 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 of 1.3 possible baseline FE Na 1.47% suggestive of intrinsic renal ds continue D5NS @ 80 ml/hr hgb/hct up to 10.1/30.6 24 hr urine 2164mg f/u cbc
--- NOTE | 2016-12-19 18:34 | Operative Report ---
INPATIENT GASTROINTESTINAL PROCEDURE NOTE PROCEDURE: EGD with biopsy. REFERRING PHYSICIAN: Dr. Andrade. REASON FOR PROCEDURE: Upper GI bleed in the form of coffee-ground emesis, anemia, and drop in hemoglobin. CONSENT: Risks, benefits, alternatives, nature, indication, possible outcomes were discussed. Mentioned bleeding, infection, perforation, , disability, cardiopulmonary distress and arrest, missed lesions and cancers, and need for surgery. The patient is agreeing prior to providing informed consent. PREOPERATIVE DIAGNOSIS: Upper gastrointestinal bleed. POSTOPERATIVE DIAGNOSIS: Esophagitis. MEDICATIONS: Provided by anesthesiologist due to respiratory failure. DESCRIPTION OF PROCEDURE: The patient was placed on the left side. Upper gastroscope advanced from the mouth to the second portion of duodenum. Scope brought back in the stomach with retroflexion view of fundus, cardia, and lesser curvature. Scope was straightened and slowly withdrawn through the esophagus and removed. COMPLICATIONS: None. FINDINGS: 1. GE junction at 40 cm with esophagitis, status post biopsy. 2. Normal stomach. 3. Normal duodenum. RECOMMENDATIONS: 1. Follow up on biopsy. 2. Continue to provide Protonix. 3. Follow H and H. Thank you for allowing me to participate. Please call me if you have any questions. JOB# [id number]
[2016-12-20] MEDS: Albuterol/Ipratropium Neb 3 ML AERS HHN SCH ×3 (01:26→15:04)
[2016-12-20] MEDS: Budesonide 0.5 Mg/2 mL Ud HHN SCH ×2 (04:52→07:24)
[2016-12-20 05:04] LABS: % BASOPHILS 0.8 % (0.0-2.0); % EOSINOPHILS 6.3 % (0.0-5.0); % LYMPHOCYTES 24.4 % (20.0-50.0); % MONOCYTES 10.9 % (2.0-10.0); % NEUTROPHILS 57.6 % (40.0-80.0); HEMOGLOBIN 9.2 gm/dL (12.6-17.4); MEAN CELL VOLUME 93.8 fl (80-99); MEAN CORPUSCULAR HEMOGLOBIN 30.8 pg (27.0-31.0); MEAN CORPUSCULAR HGB CONC 32.8 pg (28.0-36.0); MEAN PLATELET VOLUME 8.4 fl; NEUTROPHILE ABSOLUTE 3.4 Th/cmm (1.8-8.0); RED BLOOD COUNT 2.98 Mil/cmm (3.80-5.80); RED CELL DISTRIBUTION WIDTH 13.1 % (11.5-20.0)
[2016-12-20 05:19] LABS: PLATELET COUNT 205 Th/cmm (150-400); WHITE BLOOD COUNT 5.8 Th/cmm (4.8-10.8)
[2016-12-20 05:31] LABS: ANION GAP 5.4 (7.0-16.0); BUN - UREA NITROGEN 18 mg/dL (7-25); BUN/CREATININE RATIO 13.8; CALCIUM SERUM 8.9 mg/dL (8.6-10.3); CARBON DIOXIDE 26.9 mEq/L (21.0-31.0); CHLORIDE 111 mEq/L (98-107); CREATININE - SERUM 1.3 mg/dL (0.7-1.3); GLUCOSE 173 mg/dL (70-105); POTASSIUM SERUM 3.3 mEq/L (3.5-5.1); SODIUM SERUM 140 mEq/L (136-145)
[2016-12-20] MEDS: Metoclopramide 5 mg/mL 2mL Vial IVP SCH (06:53)
[2016-12-20] MEDS: INSULIN ASPART SLIDING SCALE 100 UNITS/ML UNIT SUBQ SCH ×2 (06:54→12:00)
[2016-12-20] MEDS: Levothyroxine 0.05 Mg Tab GT SCH ×2 (07:45→09:12)
[2016-12-20] MEDS: Vancomycin HCl 1.5 GM in Sodium Chloride 0.9% 500 ML IV SCH (09:00)
[2016-12-20] MEDS: Theophylline 80 mg/15 mL UDC GT SCH (09:01)
[2016-12-20] MEDS: Multivitamin Tab GT SCH (09:02)
[2016-12-20] MEDS: Lactobacillus Rhamnosus 10 Billion CFU Capsule GT SCH (09:03)
[2016-12-20] MEDS: Chlorhexidine Gluconate 0.12% 480mL Bottle MM SCH (09:06)
[2016-12-20] MEDS: INSULIN HUMAN ISOPHANE (NPH) 100 UNITS/ML SUBQ SCH (09:07)
[2016-12-20] MEDS ORDERED: Potassium Chloride 20 mEq ER Tab PO ONE (13:03)
--- NOTE | 2016-12-20 13:03 | General Progress Note ---
Subjective - Review of Systems Service Date: 12/20/16 Subjective: eyes open, on T piece, comfortable, no further N/V Objective - Results Result Diagrams: 12/20/16 04:29 12/20/16 04:29 Recent Labs: Laboratory Last Values WBC 5.8 Th/cmm (4.8-10.8) D 12/20/16 04:29 RBC 2.98 Mil/cmm (3.80-5.80) L 12/20/16 04:29 Hgb 9.2 gm/dL (12.6-17.4) L 12/20/16 04:29 Hct 28.0 % (39.0-49.0) L 12/20/16 04:29 MCV 93.8 fl (80-99) 12/20/16 04:29 MCH 30.8 pg (27.0-31.0) 12/20/16 04:29 MCHC Differential 32.8 pg (28.0-36.0) 12/20/16 04:29 RDW 13.1 % (11.5-20.0) 12/20/16 04:29 Plt Count 205 Th/cmm (150-400) D 12/20/16 04:29 MPV 8.4 fl 12/20/16 04:29 Neutrophils % 57.6 % (40.0-80.0) 12/20/16 04:29 Lymphocytes % 24.4 % (20.0-50.0) 12/20/16 04:29 Monocytes % 10.9 % (2.0-10.0) H 12/20/16 04:29 Eosinophils % 6.3 % (0.0-5.0) H 12/20/16 04:29 Basophils % 0.8 % (0.0-2.0) 12/20/16 04:29 Eos Smear Source URINE 12/17/16 21:00 Eos Smear Total Cells NONE SEEN (NONE SEEN) 12/17/16 21:00 PT 10.3 SECONDS (9.5-11.5) 12/19/16 04:53 INR 1.04 (0.5-1.4) 12/19/16 04:53 PTT (Actin FS) 25.6 SECONDS (26.0-38.0) L 12/16/16 11:40 Sodium 140 mEq/L (136-145) 12/20/16 04:29 Potassium 3.3 mEq/L (3.5-5.1) L 12/20/16 04:29 Chloride 111 mEq/L (98-107) H 12/20/16 04:29 Carbon Dioxide 26.9 mEq/L (21.0-31.0) 12/20/16 04:29 Anion Gap 5.4 (7.0-16.0) L 12/20/16 04:29 BUN 18 mg/dL (7-25) 12/20/16 04:29 Creatinine 1.3 mg/dL (0.7-1.3) 12/20/16 04:29 Est GFR ( Amer) TNP 12/20/16 04:29 Est GFR (Non-Af Amer) TNP 12/20/16 04:29 BUN/Creatinine Ratio 13.8 12/20/16 04:29 Glucose 173 mg/dL (70-105) H 12/20/16 04:29 POC Glucose 151 MG/DL (70 - 105) H 12/20/16 11:18 Whole Bld Lactic Acid 1.01 mmol/L (0.60-2.00) 12/16/16 11:40 Calcium 8.9 mg/dL (8.6-10.3) 12/20/16 04:29 Phosphorus 2.3 mg/dL (2.5-5.0) L 12/18/16 04:50 Magnesium 2.3 mg/dL (1.9-2.7) 12/18/16 04:50 Total Bilirubin 0.4 mg/dL (0.3-1.0) 12/18/16 04:50 AST 15 U/L (13-39) 12/18/16 04:50 ALT 13 U/L (7-52) 12/18/16 04:50 Alkaline Phosphatase 51 U/L (34-104) 12/18/16 04:50 Creatine Kinase 122 U/L (30-223) 12/16/16 11:40 C-Reactive Protein 4.20 mg/dL (0.0-0.9) H 12/17/16 04:28 B-Natriuretic Peptide 163.0 pg/mL (5.0-100.0) H 12/18/16 04:50 Total Protein 7.0 gm/dL (6.0-8.3) 12/18/16 04:50 Albumin 3.2 gm/dL (4.2-5.5) L 12/18/16 04:50 Globulin 3.8 gm/dL 12/18/16 04:50 Albumin/Globulin Ratio 0.8 (1.0-1.8) L 12/18/16 04:50 Triglycerides 109 mg/dL (<150) 12/18/16 04:50 Cholesterol 101 mg/dL (<200) 12/18/16 04:50 LDL Cholesterol Direct 51 mg/dL (75-193) L 12/18/16 04:50 HDL Cholesterol 31 mg/dL (23-92) 12/18/16 04:50 Amylase 108 U/L (29-103) H 12/16/16 11:40 Lipase 21 U/L (11-82) 12/16/16 11:40 Urine Source [place] 12/16/16 12:25 Urine Color YELLOW 12/16/16 12:25 Urine Clarity CLOUDY (CLEAR) 12/16/16 12:25 Urine pH 6.5 12/16/16 12:25 Ur Specific [place] 1.020 (1.005-1.030) 12/16/16 12:25 Urine Protein 100 mg/dL (NEGATIVE) H 12/16/16 12:25 Urine Glucose (UA) NEGATIVE mg/dL (NEGATIVE) 12/16/16 12:25 Urine Ketones NEGATIVE mg/dL (NEGATIVE) 12/16/16 12:25 Urine Blood MODERATE (NEGATIVE) H 12/16/16 12:25 Urine Nitrate NEGATIVE (NEGATIVE) 12/16/16 12:25 Urine Bilirubin SMALL (NEGATIVE) H 12/16/16 12:25 Urine Urobilinogen 0.2 E.U./dL (0.2 - 1.0) 12/16/16 12:25 Ur Leukocyte Esterase LARGE (NEGATIVE) H 12/16/16 12:25 Urine RBC 6-8 /hpf (0-5) 12/16/16 12:25 Urine WBC 50-100 /hpf (0-5) H 12/16/16 12:25 Ur Epithelial Cells OCCASIONAL /lpf (FEW) 12/16/16 12:25 Urine Bacteria MANY /hpf (NONE SEEN) 12/16/16 12:25 U Random Total Protein 117.0 mg/dL 12/18/16 21:00 Ur Random Sodium 87 mmol/L 12/17/16 21:00 Urine Collection Time 24 hours 12/18/16 21:00 Urine Total Volume 1850 ml 12/18/16 21:00 Urine Creatinine 60.0 mg/dl (39.0-259.0) 12/17/16 21:00 U Tot Protein 24h, Calc 2164.5 mg/24 hr (0-165) H 12/18/16 21:00 Gastric Occult Blood POSITIVE 12/16/16 11:30 Stool Occult Blood NEGATIVE (NEGATIVE) 12/17/16 06:20 Theophylline 4.6 ug/mL (10.0-20.0) L 12/16/16 11:40 Blood Type O POSITIVE 12/16/16 11:40 Antibody Screen NEGATIVE 12/16/16 11:40 - Physical Exam Vitals and I&O: Vital Signs Temp 97.5 F 12/20/16 12:00 Pulse 66 12/20/16 12:00 Resp 16 12/20/16 12:00 BP 115/55 12/20/16 12:00 Pulse Ox 100 12/20/16 12:00 Intake & Output 12/19/16 12/20/16 12/20/16 18:59 06:59 18:59 Intake Total 550 1150 210 Output Total 700 Balance 550 450 210 Intake: Intake, IV Amount 550 1150 D5-0.9%Ns 1,000 ml @ 80 1000 mls/hr IV .[id number] [facility] Rx #:[id number] Pantoprazole 80 mg In 100 Sodium Chloride 0.9% 100 ml @ 10 mls/hr IV Q10H [facility] Rx#:[id number] Piperacillin Sodium/ 50 50 Tazobact 3.375 gm In Sodium Chloride 0.9% 50 ml @ 100 mls/hr IV Q8H [facility] Rx#:[id number] Vancomycin HCl 1.5 gm In 500 Sodium Chloride 0.9% 500 ml @ 250 mls/hr IV DAILY [facility] Rx#:[id number] Tube Feeding 10 Other 200 Output: Urine 700 Other: Stool Characteristics Soft Liquid Brown Active Medications: Current Medications Acetaminophen (Tylenol 650mg/20.3ml Suspension) 650 mg GT Q4H PRN PRN Reason: Fever >101 Stop: 02/14/17 15:12 Acetylcysteine (Mucomyst 10%) 2 ml HHN Q6HR [facility] Stop: 02/14/17 17:59 Last Admin: 12/20/16 07:24 Dose: 2 ml Albuterol/Ipratropium (Duoneb Neb) 3 ml HHN Q6HRT [facility] Stop: 02/14/17 18:59 Last Admin: 12/20/16 07:24 Dose: 3 ml Artificial Tears (Artificial Tears Ophth Soln) 1 drop EACH EYE Q6H PRN PRN Reason: dry eyes Stop: 01/15/17 14:56 Bisacodyl (Dulcolax 10 Mg Supp) 10 mg RC DAILY PRN PRN Reason: if MOM ineffective Stop: 02/14/17 14:56 Budesonide (Pulmicort) 0.5 mg HHN Q12HRT [facility] Stop: 02/14/17 18:59 Last Admin: 12/20/16 07:24 Dose: 0.5 mg Chlorhexidine Gluconate (Peridex) 15 ml MM Q12HR [facility] Stop: 02/14/17 20:59 Last Admin: 12/20/16 09:06 Dose: 15 ml Chlorpromazine (Thorazine) 25 mg IM Q8H PRN; Protocol PRN Reason: Hiccups Stop: 02/14/17 16:59 Clonidine HCl (Catapres) 0.1 mg PO Q6H PRN PRN Reason: SBP>160 Stop: 02/14/17 15:14 Last Admin: 12/20/16 08:30 Dose: 0.1 mg Docusate Sodium (Colace) 100 mg PO BID [facility] Stop: 02/14/17 16:59 Last Admin: 12/20/16 09:01 Dose: 100 mg Epoetin Dennis (Epogen) 10,000 units SUBQ QMON [facility] Stop: 02/16/17 14:59 Last Admin: 12/18/16 14:18 Dose: 10,000 units Piperacillin Sod/Tazobactam (Sod 3.375 gm/ Sodium Chloride) 50 mls @ 100 mls/ hr IV Q8H [facility] Stop: 02/14/17 22:59 Last Admin: 12/20/16 07:00 Dose: 100 mls/hr Dextrose/Sodium Chloride (D5-0.9%Ns) 1,000 mls @ 80 mls/hr IV .[id number] [facility] Stop: 02/14/17 21:38 Last Infusion: 12/20/16 06:51 Dose: Infused Vancomycin HCl 1.5 gm/ Sodium (Chloride) 500 mls @ 250 mls/hr IV DAILY [facility] Stop: 02/17/17 12:59 Last Admin: 12/20/16 09:00 Dose: 250 mls/hr Pantoprazole Sodium 80 mg/ (Sodium Chloride) 100 mls @ 10 mls/hr IV Q10H [facility] Stop: 02/17/17 14:59 Last Admin: 12/19/16 23:30 Dose: 10 mls/hr Insulin Aspart (Novolog Insulin Sliding Scale) 0 units SUBQ ACHS [facility] PRN Reason: Protocol Stop: 02/14/17 16:29 Last Admin: 12/20/16 06:54 Dose: Not Given Insulin Human NPH (Novolin N) 10 units SUBQ Q12HR [facility] Stop: 02/14/17 20:59 Last Admin: 12/20/16 09:07 Dose: 10 units Lactobacillus Rhamnosus (Culturelle) 1 each GT Q12HR [facility] Stop: 02/14/17 20:59 Last Admin: 12/20/16 09:03 Dose: 1 each Levothyroxine Sodium (Synthroid) 0.05 mg GT QDAC [facility] Stop: 02/15/17 07:29 Last Admin: 12/20/16 09:12 Dose: 0.05 mg Magnesium Hydroxide (Milk Of Magnesia) 30 ml GT HS PRN PRN Reason: Constipation Stop: 02/14/17 14:56 Metoclopramide HCl (Reglan) 10 mg IVP Q8HR [facility] Stop: 02/14/17 20:59 Last Admin: 12/20/16 06:53 Dose: 10 mg Mineral Oil (Mineral Oil 30 Ml) 30 ml GT QID [facility] Stop: 02/15/17 16:59 Last Admin: 12/20/16 09:01 Dose: 30 ml Miscellaneous (Vancomycin Iv Per Pharmacy) 1 ea MC PRN PRN PRN Reason: PROTOCOL Stop: 02/17/17 12:28 Multivitamins/Vitamin C (Theragran) 1 tab GT DAILY [facility] Stop: 02/15/17 08:59 Last Admin: 12/20/16 09:02 Dose: 1 tab Mupirocin (Bactroban Oint) 1 appl NS BID [facility] Stop: 12/22/16 09:01 Last Admin: 12/20/16 09:06 Dose: 1 appl Scopolamine (Transderm Scop Patch) 1 patch TD Q72H [facility] Stop: 02/14/17 17:59 Sodium Phosphate (Fleet Enema) 135 ml RC Q2D PRN PRN Reason: dulcolax ineffective Stop: 02/14/17 14:56 Sucralfate (Carafate) 1 gm GT QID [facility] Stop: 02/14/17 16:59 Last Admin: 12/20/16 09:02 Dose: 1 gm Theophylline (Prieto-Dur) 200 mg GT Q12HR [facility] Stop: 02/14/17 20:59 Last Admin: 12/20/16 09:01 Dose: 200 mg General: No acute distress HEENT: Atraumatic, Mucous membr. moist/pink Neck: Supple, +2 carotid pulse wo bruit Cardiovascular: Regular rate, Normal S1, Normal S2 Lungs: Other (antonette rhonchi) Abdomen: Bowel sounds, Soft Extremities: no Edema Neurological: Sensation intact Skin: no Rash - Procedures Procedures: Procedures Procedure Code Date BLOOD TRANSFUSION SERVICE 03240 02/09/16 EGD BIOPSY SINGLE/MULTIPLE 81407 12/16/16 EGD DIAGNOSTIC BRUSH WASH 59076 02/09/16 EXCISION OF ESOPHAGOGASTRIC JUNCTION, ENDO, DIAGN [id number] 12/16/16 INSPECTION OF UPPER INTESTINAL TRACT, ENDO [id number] 02/09/16 TRANSFUSE NONAUT RED BLOOD CELLS IN PERIPH VEIN, PERC [id number] 02/09/16 Assessment/Plan - Problem List Patient Problems: All Active Problems VOMITING DARK BROWN EMESIS (Acute) Anemia (Acute) D64.9 Anoxic brain damage, not elsewhere classified (Acute) G93.1 Chronic respiratory failure (Acute) J96.10 Hypo-osmolality and hyponatremia (Acute) E87.1 Tracheostomy status (Acute) Z93.0 - Assessment Assessment: jemima on ckd coffee ground vomitus possible esophagitis/ gastritis/ PUD/ varices resp failure on T piece anoxic enceph type 2 dm HTN 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 of 1.3 possible baseline FE Na 1.47% suggestive of intrinsic renal ds continue D5NS @ 40ml/hr hgb/hct stable @ 9.2/28 24 hr urine 2164mg replace K
[2016-12-20] MEDS ORDERED: D5-0.9%NS 1,000 ML IV SCH (13:04)
--- NOTE | 2016-12-20 13:11 | Internal Medicine Prog Note ---
Internal Medicine Subjective - Subjective Service Date: 12/20/16 Patient seen and examined:: with staff Patient is:: awake Per staff patient is:: no adverse event Internal Medicine Objective - Results Result Diagrams: 12/20/16 04:29 12/20/16 04:29 Recent Labs: Laboratory Last Values WBC 5.8 Th/cmm (4.8-10.8) D 12/20/16 04:29 RBC 2.98 Mil/cmm (3.80-5.80) L 12/20/16 04:29 Hgb 9.2 gm/dL (12.6-17.4) L 12/20/16 04:29 Hct 28.0 % (39.0-49.0) L 12/20/16 04:29 MCV 93.8 fl (80-99) 12/20/16 04:29 MCH 30.8 pg (27.0-31.0) 12/20/16 04:29 MCHC Differential 32.8 pg (28.0-36.0) 12/20/16 04:29 RDW 13.1 % (11.5-20.0) 12/20/16 04:29 Plt Count 205 Th/cmm (150-400) D 12/20/16 04:29 MPV 8.4 fl 12/20/16 04:29 Neutrophils % 57.6 % (40.0-80.0) 12/20/16 04:29 Lymphocytes % 24.4 % (20.0-50.0) 12/20/16 04:29 Monocytes % 10.9 % (2.0-10.0) H 12/20/16 04:29 Eosinophils % 6.3 % (0.0-5.0) H 12/20/16 04:29 Basophils % 0.8 % (0.0-2.0) 12/20/16 04:29 Eos Smear Source URINE 12/17/16 21:00 Eos Smear Total Cells NONE SEEN (NONE SEEN) 12/17/16 21:00 PT 10.3 SECONDS (9.5-11.5) 12/19/16 04:53 INR 1.04 (0.5-1.4) 12/19/16 04:53 PTT (Actin FS) 25.6 SECONDS (26.0-38.0) L 12/16/16 11:40 Sodium 140 mEq/L (136-145) 12/20/16 04:29 Potassium 3.3 mEq/L (3.5-5.1) L 12/20/16 04:29 Chloride 111 mEq/L (98-107) H 12/20/16 04:29 Carbon Dioxide 26.9 mEq/L (21.0-31.0) 12/20/16 04:29 Anion Gap 5.4 (7.0-16.0) L 12/20/16 04:29 BUN 18 mg/dL (7-25) 12/20/16 04:29 Creatinine 1.3 mg/dL (0.7-1.3) 12/20/16 04:29 Est GFR ( Amer) TNP 12/20/16 04:29 Est GFR (Non-Af Amer) TNP 12/20/16 04:29 BUN/Creatinine Ratio 13.8 12/20/16 04:29 Glucose 173 mg/dL (70-105) H 12/20/16 04:29 POC Glucose 151 MG/DL (70 - 105) H 12/20/16 11:18 Whole Bld Lactic Acid 1.01 mmol/L (0.60-2.00) 12/16/16 11:40 Calcium 8.9 mg/dL (8.6-10.3) 12/20/16 04:29 Phosphorus 2.3 mg/dL (2.5-5.0) L 12/18/16 04:50 Magnesium 2.3 mg/dL (1.9-2.7) 12/18/16 04:50 Total Bilirubin 0.4 mg/dL (0.3-1.0) 12/18/16 04:50 AST 15 U/L (13-39) 12/18/16 04:50 ALT 13 U/L (7-52) 12/18/16 04:50 Alkaline Phosphatase 51 U/L (34-104) 12/18/16 04:50 Creatine Kinase 122 U/L (30-223) 12/16/16 11:40 C-Reactive Protein 4.20 mg/dL (0.0-0.9) H 12/17/16 04:28 B-Natriuretic Peptide 163.0 pg/mL (5.0-100.0) H 12/18/16 04:50 Total Protein 7.0 gm/dL (6.0-8.3) 12/18/16 04:50 Albumin 3.2 gm/dL (4.2-5.5) L 12/18/16 04:50 Globulin 3.8 gm/dL 12/18/16 04:50 Albumin/Globulin Ratio 0.8 (1.0-1.8) L 12/18/16 04:50 Triglycerides 109 mg/dL (<150) 12/18/16 04:50 Cholesterol 101 mg/dL (<200) 12/18/16 04:50 LDL Cholesterol Direct 51 mg/dL (75-193) L 12/18/16 04:50 HDL Cholesterol 31 mg/dL (23-92) 12/18/16 04:50 Amylase 108 U/L (29-103) H 12/16/16 11:40 Lipase 21 U/L (11-82) 12/16/16 11:40 Urine Source [place] 12/16/16 12:25 Urine Color YELLOW 12/16/16 12:25 Urine Clarity CLOUDY (CLEAR) 12/16/16 12:25 Urine pH 6.5 12/16/16 12:25 Ur Specific [place] 1.020 (1.005-1.030) 12/16/16 12:25 Urine Protein 100 mg/dL (NEGATIVE) H 12/16/16 12:25 Urine Glucose (UA) NEGATIVE mg/dL (NEGATIVE) 12/16/16 12:25 Urine Ketones NEGATIVE mg/dL (NEGATIVE) 12/16/16 12:25 Urine Blood MODERATE (NEGATIVE) H 12/16/16 12:25 Urine Nitrate NEGATIVE (NEGATIVE) 12/16/16 12:25 Urine Bilirubin SMALL (NEGATIVE) H 12/16/16 12:25 Urine Urobilinogen 0.2 E.U./dL (0.2 - 1.0) 12/16/16 12:25 Ur Leukocyte Esterase LARGE (NEGATIVE) H 12/16/16 12:25 Urine RBC 6-8 /hpf (0-5) 12/16/16 12:25 Urine WBC 50-100 /hpf (0-5) H 12/16/16 12:25 Ur Epithelial Cells OCCASIONAL /lpf (FEW) 12/16/16 12:25 Urine Bacteria MANY /hpf (NONE SEEN) 12/16/16 12:25 U Random Total Protein 117.0 mg/dL 12/18/16 21:00 Ur Random Sodium 87 mmol/L 12/17/16 21:00 Urine Collection Time 24 hours 12/18/16 21:00 Urine Total Volume 1850 ml 12/18/16 21:00 Urine Creatinine 60.0 mg/dl (39.0-259.0) 12/17/16 21:00 U Tot Protein 24h, Calc 2164.5 mg/24 hr (0-165) H 12/18/16 21:00 Gastric Occult Blood POSITIVE 12/16/16 11:30 Stool Occult Blood NEGATIVE (NEGATIVE) 12/17/16 06:20 Theophylline 4.6 ug/mL (10.0-20.0) L 12/16/16 11:40 Blood Type O POSITIVE 12/16/16 11:40 Antibody Screen NEGATIVE 12/16/16 11:40 - Physical Exam Vitals and I&O: Vital Signs Temp 97.5 F 12/20/16 12:00 Pulse 66 12/20/16 12:00 Resp 16 12/20/16 12:00 BP 115/55 12/20/16 12:00 Pulse Ox 100 12/20/16 12:00 Intake & Output 12/19/16 12/20/16 12/20/16 18:59 06:59 18:59 Intake Total 550 1150 210 Output Total 700 Balance 550 450 210 Intake: Intake, IV Amount 550 1150 D5-0.9%Ns 1,000 ml @ 80 1000 mls/hr IV .[id number] [facility] Rx #:[id number] Pantoprazole 80 mg In 100 Sodium Chloride 0.9% 100 ml @ 10 mls/hr IV Q10H [facility] Rx#:[id number] Piperacillin Sodium/ 50 50 Tazobact 3.375 gm In Sodium Chloride 0.9% 50 ml @ 100 mls/hr IV Q8H [facility] Rx#:[id number] Vancomycin HCl 1.5 gm In 500 Sodium Chloride 0.9% 500 ml @ 250 mls/hr IV DAILY [facility] Rx#:[id number] Tube Feeding 10 Other 200 Output: Urine 700 Other: Stool Characteristics Soft Liquid Brown Active Medications: Current Medications Acetaminophen (Tylenol 650mg/20.3ml Suspension) 650 mg GT Q4H PRN PRN Reason: Fever >101 Stop: 02/14/17 15:12 Acetylcysteine (Mucomyst 10%) 2 ml HHN Q6HR [facility] Stop: 02/14/17 17:59 Last Admin: 12/20/16 07:24 Dose: 2 ml Albuterol/Ipratropium (Duoneb Neb) 3 ml HHN Q6HRT [facility] Stop: 02/14/17 18:59 Last Admin: 12/20/16 07:24 Dose: 3 ml Artificial Tears (Artificial Tears Ophth Soln) 1 drop EACH EYE Q6H PRN PRN Reason: dry eyes Stop: 01/15/17 14:56 Bisacodyl (Dulcolax 10 Mg Supp) 10 mg RC DAILY PRN PRN Reason: if MOM ineffective Stop: 02/14/17 14:56 Budesonide (Pulmicort) 0.5 mg HHN Q12HRT [facility] Stop: 02/14/17 18:59 Last Admin: 12/20/16 07:24 Dose: 0.5 mg Chlorhexidine Gluconate (Peridex) 15 ml MM Q12HR [facility] Stop: 02/14/17 20:59 Last Admin: 12/20/16 09:06 Dose: 15 ml Chlorpromazine (Thorazine) 25 mg IM Q8H PRN; Protocol PRN Reason: Hiccups Stop: 02/14/17 16:59 Clonidine HCl (Catapres) 0.1 mg PO Q6H PRN PRN Reason: SBP>160 Stop: 02/14/17 15:14 Last Admin: 12/20/16 08:30 Dose: 0.1 mg Docusate Sodium (Colace) 100 mg PO BID [facility] Stop: 02/14/17 16:59 Last Admin: 12/20/16 09:01 Dose: 100 mg Epoetin Dennis (Epogen) 10,000 units SUBQ QMON [facility] Stop: 02/16/17 14:59 Last Admin: 12/18/16 14:18 Dose: 10,000 units Piperacillin Sod/Tazobactam (Sod 3.375 gm/ Sodium Chloride) 50 mls @ 100 mls/ hr IV Q8H [facility] Stop: 02/14/17 22:59 Last Admin: 12/20/16 07:00 Dose: 100 mls/hr Vancomycin HCl 1.5 gm/ Sodium (Chloride) 500 mls @ 250 mls/hr IV DAILY [facility] Stop: 02/17/17 12:59 Last Admin: 12/20/16 09:00 Dose: 250 mls/hr Pantoprazole Sodium 80 mg/ (Sodium Chloride) 100 mls @ 10 mls/hr IV Q10H [facility] Stop: 02/17/17 14:59 Last Admin: 12/19/16 23:30 Dose: 10 mls/hr Dextrose/Sodium Chloride (D5-0.9%Ns) 1,000 mls @ 40 mls/hr IV .Q24H [facility] Stop: 02/14/17 21:38 Insulin Aspart (Novolog Insulin Sliding Scale) 0 units SUBQ ACHS [facility] PRN Reason: Protocol Stop: 02/14/17 16:29 Last Admin: 12/20/16 06:54 Dose: Not Given Insulin Human NPH (Novolin N) 10 units SUBQ Q12HR [facility] Stop: 02/14/17 20:59 Last Admin: 12/20/16 09:07 Dose: 10 units Lactobacillus Rhamnosus (Culturelle) 1 each GT Q12HR [facility] Stop: 02/14/17 20:59 Last Admin: 12/20/16 09:03 Dose: 1 each Levothyroxine Sodium (Synthroid) 0.05 mg GT QDAC [facility] Stop: 02/15/17 07:29 Last Admin: 12/20/16 09:12 Dose: 0.05 mg Magnesium Hydroxide (Milk Of Magnesia) 30 ml GT HS PRN PRN Reason: Constipation Stop: 02/14/17 14:56 Metoclopramide HCl (Reglan) 10 mg IVP Q8HR [facility] Stop: 02/14/17 20:59 Last Admin: 12/20/16 06:53 Dose: 10 mg Mineral Oil (Mineral Oil 30 Ml) 30 ml GT QID [facility] Stop: 02/15/17 16:59 Last Admin: 12/20/16 09:01 Dose: 30 ml Miscellaneous (Vancomycin Iv Per Pharmacy) 1 ea MC PRN PRN PRN Reason: PROTOCOL Stop: 02/17/17 12:28 Multivitamins/Vitamin C (Theragran) 1 tab GT DAILY [facility] Stop: 02/15/17 08:59 Last Admin: 12/20/16 09:02 Dose: 1 tab Mupirocin (Bactroban Oint) 1 appl NS BID [facility] Stop: 12/22/16 09:01 Last Admin: 12/20/16 09:06 Dose: 1 appl Potassium Chloride (Klor-Con) 20 meq PO X1 ONE Stop: 12/20/16 13:04 Scopolamine (Transderm Scop Patch) 1 patch TD Q72H [facility] Stop: 02/14/17 17:59 Sodium Phosphate (Fleet Enema) 135 ml RC Q2D PRN PRN Reason: dulcolax ineffective Stop: 02/14/17 14:56 Sucralfate (Carafate) 1 gm GT QID [facility] Stop: 02/14/17 16:59 Last Admin: 12/20/16 09:02 Dose: 1 gm Theophylline (Prieto-Dur) 200 mg GT Q12HR [facility] Stop: 02/14/17 20:59 Last Admin: 12/20/16 09:01 Dose: 200 mg HEENT: NC/AT, PERRLA Neck: Supple Lungs: CTAB Cardiovascular: RRR, Normal S1, Normal S2, without murmur Abdomen: soft non-tender, non-distended Extremities: clear - Procedures Procedures: Procedures Procedure Code Date BLOOD TRANSFUSION SERVICE 39508 02/09/16 EGD BIOPSY SINGLE/MULTIPLE 44842 12/16/16 EGD DIAGNOSTIC BRUSH WASH 99496 02/09/16 EXCISION OF ESOPHAGOGASTRIC JUNCTION, ENDO, DIAGN [id number] 12/16/16 INSPECTION OF UPPER INTESTINAL TRACT, ENDO [id number] 02/09/16 TRANSFUSE NONAUT RED BLOOD CELLS IN PERIPH VEIN, PERC [id number] 02/09/16 Internal Medicine Assmt/Plan - Assessment Assessment: upper GI bleed-esophagitis acute uti , aerococcus urinae acute respiratory failure dehydration htn dm-2 - Plan Plan: dc planning ivabx ivf for hydration npo montior for fever
[2016-12-20] MEDS ORDERED: Pantoprazole 40 mg EC Tab PO SCH (17:00)
--- NOTE | 2016-12-22 06:45 | Pathology Report ---
[id number] Collection date: 12/19/2016 Surgeon: Dr. Yamile Webster Specimen Description: Esophageal biopsy. Gross Description: Received in formalin is a single linda soft tissue fragment measuring 0.3 cm in greatest dimension. Totally submitted in one cassette. Microscopic Description: The histologic sections show esophageal squamous with mild chronic inflammation present consisting of small numbers of lymphocytes and plasma cells. The PAS stain shows no evidence of for fungal organisms. The Alcian blue stain shows no significant abnormalities. Diagnosis: Mild chronic inflammation consistent with chronic esophagitis (esophageal biopsy). [facility]# [id number] [facility]
--- NOTE | 2017-01-03 00:57 | Discharge Summary ---
FINAL DIAGNOSES: Upper gastrointestinal bleed, acute urinary tract infection, respiratory failure, dehydration, hypertension, type 2 diabetes, ____natremia. PHYSICAL EXAMINATION: GENERAL: The patient is well developed, well nourished, in no acute distress. VITAL SIGNS: Stable. HEENT: Head is normocephalic, atraumatic. NECK: Supple, no mass. LUNGS: Clear. HEART: Regular rate and rhythm. No murmurs or gallops. HISTORY OF PRESENT ILLNESS: An 81-year-old [place] male who is a resident at [facility], was brought here to [facility] for coffee-ground emesis x 1 week. The patient was also noted to have productive thick greenish secretion upon examination. The patient was admitted to the ICU unit. The patient had a consultation with Dr Jimenez and Dr. Norton and Dr. Cruz as well. The patient was kept on n.p.o., IV fluids for hydration, occult blood was also ordered, Dr. Bui's plan of care for this patient could be due to small ulcer and H and H was stable, so an endoscopy was not needed to be done. The patient was to continue on Reglan. On 12/19/2016, the patient had an EGD with biopsy, impression is normal stomach, normal duodenum, follow H and H and continue with Protonix. The patient later then stabilized and was stable for discharge. CONDITION UPON DISCHARGE: Fair. DISPOSITION: The patient is going back to [facility]. JOB# [id number]
== END 2016-12-20 16:40 | DRG 377 ==
LOC: ER 10:57 → ICU 13:32
PROVIDERS: ADMIT Internal Medicine; ATTEND Internal Medicine
PROC: 0DB58ZX Excision of Esophagus, Via Natural or Artificial Opening Endoscopic, Diagnostic (ICD-10-PCS; principal; 2016-12-19)
DX: K92.2 Gastrointestinal hemorrhage, unspecified (principal); R53.2 Functional quadriplegia; J96.20 Acute and chronic respiratory failure, unspecified whether with hypoxia or hypercapnia; N17.9 Acute kidney failure, unspecified; G93.1 Anoxic brain damage, not elsewhere classified; I47.2 Ventricular tachycardia; Z93.0 Tracheostomy status; N18.3 Chronic kidney disease, stage 3 (moderate); N39.0 Urinary tract infection, site not specified; E87.1 Hypo-osmolality and hyponatremia; E44.0 Moderate protein-calorie malnutrition; K20.9 Esophagitis, unspecified; D63.1 Anemia in chronic kidney disease; E03.9 Hypothyroidism, unspecified; I25.10 Atherosclerotic heart disease of native coronary artery without angina pectoris; M19.90 Unspecified osteoarthritis, unspecified site; F03.90 Unspecified dementia, unspecified severity, without behavioral disturbance, psychotic disturbance, mood disturbance, and anxiety; I12.9 Hypertensive chronic kidney disease with stage 1 through stage 4 chronic kidney disease, or unspecified chronic kidney disease; R13.10 Dysphagia, unspecified; E11.21 Type 2 diabetes mellitus with diabetic nephropathy; K22.8 Other specified diseases of esophagus; Z93.1 Gastrostomy status; Z95.1 Presence of aortocoronary bypass graft
CPT/HCPCS: 36415-UA; 71010-TC; 74000-TC; 76770-TC; 80048-TC; 80053-TC; 80061-TC; 80198-TC; 81001-TC; 81015-TC; 82150-TC; 82270-TC; 82273-90; 82550-TC; 82570-TC; 82948-90; 83605; 83690-TC; 83735-TC; 83880-TC; 84100-TC; 84156-TC; 84300-TC; 85025-TC; 85610-TC; 85730-TC; 86141-TC; 86850-TC; 86900-TC; 86901-TC; 87070; 87086-90; 87230-TC; 90799; 93005; 94640; 94664; 96375; C9113; J0885; J1815; J2405; J2543; J2704; J2765; J3370; J7030; J7040; J7042; Z7502; Z7610